=== PATIENT | male | born 1940 | race African-American/Black ===

== ENCOUNTER 2016-12-04 11:10 | Outpatient (CLI) | payer MEDICARE, OTHER | END 2016-12-04 11:11 | disposition home or self-care (01) | DX: J02.9 Acute pharyngitis, unspecified (principal) ==

== ENCOUNTER 2017-07-24 10:47 | Outpatient (CLI) | payer MEDICARE, OTHER ==
[2017-07-24 11:04] LABS: BASOPHILS % (AUTO) 0.3 %; EOSINOPHILS % (AUTO) 0.5 %; HGB - HEMOGLOBIN 13.6 g/dL (14.0-18.0); LYMPHOCYTES # (AUTO) 1.1 10^3/uL (1.5-3.5); LYMPHOCYTES % (AUTO) 19.5 %; MEAN CORPUSCULAR HGB CONC 34.5 g/dL (32.0-36.0); MEAN CORPUSCULAR VOLUME 95.6 fL (80.0-94.0); MEAN PLATELET VOLUME 6.8 fL (7.4-11.4); MONOCYTES # (AUTO) 0.5 10^3/uL (0.0-1.0); MONOCYTES % (AUTO) 9.9 %; NEUTROPHILS # (AUTO) 3.8 10^3/uL (1.5-6.6); NEUTROPHILS % (AUTO) 69.8 %; PLT - PLATELET COUNT 163 10^3/uL (130-450); RED BLOOD COUNT 4.13 10^6/uL (4.70-6.10); RED CELL DISTRIBUTION WIDTH 14.6 % (12.0-15.0); WHITE BLOOD COUNT 5.5 x10^3/uL (4.8-10.8)
[2017-07-24 11:41] LABS: ALBUMIN 4.4 g/dL (3.2-5.5); ALBUMIN/GLOBULIN RATIO 1.5 (1.0-2.2); BILIRUBIN,TOTAL 0.7 mg/dL (0.2-1.0); CALCIUM 9.1 mg/dL (8.5-10.3); TOTAL PROTEIN 7.3 g/dL (6.7-8.2); URIC ACID 4.8 mg/dL (2.6-7.2)
== END 2017-07-24 10:48 | disposition home or self-care (01) ==
LOC: LAB 10:47
PROVIDERS: ATTEND Internal Medicine
DX: C61 Malignant neoplasm of prostate (principal); I10 Essential (primary) hypertension; M10.9 Gout, unspecified
CPT/HCPCS: 36415; 80053; 84153; 84443; 84550; 85025

== ENCOUNTER 2018-08-19 07:18 | Outpatient (CLI) | payer MEDICARE, OTHER ==
[2018-08-19 12:11] LABS: BASOPHILS % (AUTO) 0.4 %; EOSINOPHILS # (AUTO) 0.1 10^3/uL (0.0-0.7); EOSINOPHILS % (AUTO) 1.6 %; HGB - HEMOGLOBIN 13.7 g/dL (14.0-18.0); LYMPHOCYTES # (AUTO) 1.3 10^3/uL (1.5-3.5); LYMPHOCYTES % (AUTO) 39.2 %; MEAN CORPUSCULAR HEMOGLOBIN 33.3 pg (27.0-31.0); MEAN CORPUSCULAR HGB CONC 34.2 g/dL (32.0-36.0); MEAN CORPUSCULAR VOLUME 97.3 fL (80.0-94.0); MEAN PLATELET VOLUME 8.1 fL (7.4-11.4); MONOCYTES # (AUTO) 0.4 10^3/uL (0.0-1.0); NEUTROPHILS # (AUTO) 1.6 10^3/uL (1.5-6.6); NEUTROPHILS % (AUTO) 47.8 %; PLT - PLATELET COUNT 186 10^3/uL (130-450); RED BLOOD COUNT 4.12 10^6/uL (4.70-6.10); RED CELL DISTRIBUTION WIDTH 14.6 % (12.0-15.0); WHITE BLOOD COUNT 3.3 x10^3/uL (4.8-10.8)
[2018-08-19 12:26] LABS: ALBUMIN/GLOBULIN RATIO 1.4 (1.0-2.2); BILIRUBIN,TOTAL 0.5 mg/dL (0.2-1.0); CREATININE 1.1 mg/dL (0.6-1.2); TOTAL PROTEIN 6.8 g/dL (6.7-8.2); URIC ACID 4.8 mg/dL (2.6-7.2)
== END 2018-08-19 07:19 | disposition home or self-care (01) ==
LOC: LAB.F 07:18
PROVIDERS: ATTEND Internal Medicine
DX: C61 Malignant neoplasm of prostate (principal); I10 Essential (primary) hypertension; M10.9 Gout, unspecified; Z12.5 Encounter for screening for malignant neoplasm of prostate; Z79.899 Other long term (current) drug therapy
CPT/HCPCS: 36415; 80053; 84550; 85025; G0103; 84153

== ENCOUNTER 2019-07-08 18:51 | Outpatient (CLI) | payer MEDICARE, OTHER ==
[2019-07-08 19:16] LABS: BASOPHILS % (AUTO) 0.2 %; EOSINOPHILS % (AUTO) 0.6 %; HGB - HEMOGLOBIN 13.7 g/dL (14.0-18.0); LYMPHOCYTES % (AUTO) 39.9 %; MEAN CORPUSCULAR HEMOGLOBIN 31.3 pg (27.0-31.0); MEAN CORPUSCULAR HGB CONC 32.4 g/dL (32.0-36.0); MEAN CORPUSCULAR VOLUME 96.6 fL (80.0-94.0); MEAN PLATELET VOLUME 8.9 fL (7.4-11.4); MONOCYTES # (AUTO) 0.4 10^3/uL (0.0-1.0); MONOCYTES % (AUTO) 8.1 %; NEUTROPHILS # (AUTO) 2.6 10^3/uL (1.5-6.6); PLT - PLATELET COUNT 208 10^3/uL (130-450); RED BLOOD COUNT 4.38 10^6/uL (4.70-6.10); RED CELL DISTRIBUTION WIDTH 15.3 % (12.0-15.0); WHITE BLOOD COUNT 5.1 x10^3/uL (4.8-10.8)
[2019-07-08 19:49] LABS: ALBUMIN 4.6 g/dL (3.2-5.5); ALBUMIN/GLOBULIN RATIO 1.2 (1.0-2.2); BILIRUBIN,TOTAL 0.7 mg/dL (0.2-1.0); CALCIUM 9.5 mg/dL (8.5-10.3); CREATININE 0.9 mg/dL (0.6-1.2); TOTAL PROTEIN 8.4 g/dL (6.7-8.2); URIC ACID 4.9 mg/dL (2.6-7.2)
== END 2019-07-08 18:52 | disposition home or self-care (01) ==
LOC: LAB 18:51
PROVIDERS: ATTEND Family Medicine
DX: C61 Malignant neoplasm of prostate (principal); R42 Dizziness and giddiness; R31.9 Hematuria, unspecified; I10 Essential (primary) hypertension; M10.9 Gout, unspecified
CPT/HCPCS: 36415; 80053; 84153; 84443; 84550; 85025

== ENCOUNTER 2019-07-08 19:11 | Outpatient (CLI) | payer MEDICARE, OTHER ==
--- NOTE | 2019-07-10 08:06 | Ultrasound Report ---
Reason: HEMATURIA,ABDOMINAL PAIN Procedure Date: 07/08/2019 Accession Number: [id number] / [id number] Procedure: US - Retroperitoneal CPT Code: Final Report FULL RESULT: EXAM: RENAL ULTRASOUND EXAM DATE: 07/08/2019 07:59 PM. CLINICAL HISTORY: Abdominal pain. Microscopic hematuria. COMPARISON: ABDOMEN/PELVIS W/ 12/18/2014 3:05 PM. TECHNIQUE: Real-time scanning was performed with static images obtained. FINDINGS: Right Kidney: 10.6 x 6.9 x 5.3 cm. There is no hydronephrosis or hydroureter. There is a 0.7 cm diameter simple cyst in the right renal cortex. Left Kidney: 10.7 x 5.2 x 5.4 cm. There is no hydronephrosis or hydroureter. There is a 2.5 cm diameter simple cyst in the left renal cortex. Bladder: Bilateral jets seen. The prevoid bladder volume was 79 cc. The postvoid bladder volume was 4.4 cc. Other: None. IMPRESSION: No acute pathology identified. Incidental renal cysts. RADIA The call report notification system was initiated by Dr. Joesph Celestin at 08:16 PM on 07/08/2019.
== END 2019-07-08 19:12 | disposition home or self-care (01) ==
LOC: DI 19:11
PROVIDERS: ATTEND Family Medicine
DX: R31.9 Hematuria, unspecified (principal); R10.9 Unspecified abdominal pain; C61 Malignant neoplasm of prostate; R42 Dizziness and giddiness; I10 Essential (primary) hypertension; M10.9 Gout, unspecified
CPT/HCPCS: 36415; 76770; 80053; 84153; 84443; 84550; 85025

== ENCOUNTER 2019-08-13 07:51 | Outpatient (CLI) | payer MEDICARE, OTHER ==
[2019-08-13] MEDS ORDERED: IOVERSOL 320 100 ML VIAL IVP ONE (07:59)
[2019-08-13] MEDS ORDERED: IOVERSOL 320 50 ML VIAL ONE (07:59)
[2019-08-13 08:37] LABS: CALCIUM 8.9 mg/dL (8.5-10.3)
[2019-08-13] MEDS ORDERED: IOVERSOL 320 50 ML VIAL PO ONE (11:41)
--- NOTE | 2019-08-13 17:02 | CT Report ---
Reason: ABD PAIN Procedure Date: 08/13/2019 Accession Number: [id number] / [id number] Procedure: CT - Abdomen/Pelvis W CPT Code: Final Report FULL RESULT: EXAM: CT ABDOMEN AND PELVIS WITH CONTRAST. EXAM DATE: 08/13/2019 09:27 AM. CLINICAL HISTORY: Abdominal pain. COMPARISONS: CT abdomen/pelvis 12/18/2014. TECHNIQUE: Routine helical CT imaging was performed through the abdomen and pelvis. IV contrast: OPTI-320 100 mL. Enteric contrast: No. Reconstructions: Coronal and sagittal. In accordance with CT protocol optimization, one or more of the following dose reduction techniques were utilized for this exam: automated exposure control, adjustment of mA and/or KV based on patient size, or use of iterative reconstructive technique. FINDINGS: Lung Bases: Mild left basilar atelectasis or scar formation. Liver: Few tiny hypodense lesions consistent with cysts, stable. Gallbladder/Bile Ducts: Unremarkable. Spleen: Stable. Pancreas: Stable. Mildly atrophic. Adrenal Glands: Stable. Kidneys: Stable. Left renal cortical cysts unchanged. No hydronephrosis. Peritoneal Cavity/Bowel: Moderate retained stool in the colon. Few scattered diverticula. No evidence for active diverticulitis. No dilated segments of small or large bowel. No wall thickening. The appendix is well visualized and normal. Few shotty mesenteric and retroperitoneal lymph nodes without adenopathy. No free fluid. Pelvic Organs: Stable. Numerous brachytherapy seeds affiliated with the prostate. No free fluid or adenopathy. Vasculature: Advanced calcifications affiliated with the aorta. No aneurysmal dilation. Bones: Mild degenerative changes, no destructive bony lesions. Other: Fat-containing left inguinal hernia, stable. IMPRESSION: 1. Diverticulosis without evidence for active diverticulitis. 2. Normal appendix. RADIA
== END 2019-08-13 07:52 | disposition home or self-care (01) ==
LOC: DI 07:51
PROVIDERS: ATTEND Family Medicine
DX: R10.9 Unspecified abdominal pain (principal); K57.30 Diverticulosis of large intestine without perforation or abscess without bleeding
CPT/HCPCS: 36415; 74177; 80048; Q9967

== ENCOUNTER 2020-07-20 11:11 | Outpatient (CLI) | payer MEDICARE, OTHER ==
[2020-07-20 15:07] LABS: BASOPHILS % (AUTO) 0.3 %; EOSINOPHILS # (AUTO) 0.1 10^3/uL (0.0-0.7); EOSINOPHILS % (AUTO) 1.3 %; HCT - HEMATOCRIT 40.9 % (42.0-52.0); HGB - HEMOGLOBIN 13.3 g/dL (14.0-18.0); LYMPHOCYTES # (AUTO) 1.6 10^3/uL (1.5-3.5); LYMPHOCYTES % (AUTO) 39.6 %; MEAN CORPUSCULAR HEMOGLOBIN 31.7 pg (27.0-31.0); MEAN CORPUSCULAR HGB CONC 32.5 g/dL (32.0-36.0); MEAN CORPUSCULAR VOLUME 97.6 fL (80.0-94.0); MEAN PLATELET VOLUME 10.1 fL (7.4-11.4); MONOCYTES # (AUTO) 0.6 10^3/uL (0.0-1.0); MONOCYTES % (AUTO) 14.5 %; NEUTROPHILS # (AUTO) 1.8 10^3/uL (1.5-6.6); NEUTROPHILS % (AUTO) 44.3 %; PLT - PLATELET COUNT 191 10^3/uL (130-450); RED BLOOD COUNT 4.19 10^6/uL (4.70-6.10); RED CELL DISTRIBUTION WIDTH 14.6 % (12.0-15.0); WHITE BLOOD COUNT 3.9 x10^3/uL (4.8-10.8)
[2020-07-20 15:27] LABS: ALBUMIN/GLOBULIN RATIO 1.3 (1.0-2.2); ALKALINE PHOSPHATASE 51 IU/L (42-121); ALT ALANINE AMINOTRANSFERASE 17 IU/L (10-60); AST ASPARTATE AMINOTRANSFERASE 21 IU/L (10-42); BILIRUBIN,TOTAL 0.6 mg/dL (0.2-1.0); BUN - BLOOD UREA NITROGEN 17 mg/dL (6-20); CALCIUM 9.2 mg/dL (8.5-10.3); CARBON DIOXIDE - CO2 28 mmol/L (21-32); CHLORIDE 105 mmol/L (101-111); CHOL/HDL RATIO 3.9 (<5.0); CHOLESTEROL 143 mg/dL; GFR - MDRD 88 (>89); GLUCOSE 103 mg/dL (70-100); HDL CHOLESTEROL 37 mg/dL; LDL CHOLESTEROL,CALCULATED 89 mg/dL; LDL/HDL RATIO 2.4 (<3.6); POTASSIUM 3.9 mmol/L (3.5-5.0); SODIUM 140 mmol/L (135-145); TOTAL PROTEIN 7.2 g/dL (6.7-8.2); TRIGLYCERIDES 86 mg/dL; VLDL CHOLESTEROL 17 mg/dL
[2020-07-20 15:33] LABS: THYROID STIMULATING HORMONE 1.44 uIU/mL (0.34-5.60)
== END 2020-07-20 11:12 | disposition home or self-care (01) ==
LOC: LAB.S 11:11
PROVIDERS: ATTEND Family Medicine
DX: H81.10 Benign paroxysmal vertigo, unspecified ear (principal); I10 Essential (primary) hypertension; M10.9 Gout, unspecified
CPT/HCPCS: 36415; 80053; 80061; 83721; 84443; 85025

== ENCOUNTER 2021-01-10 08:00 | Outpatient (CLI) | payer MEDICARE, OTHER ==
[2021-01-10 18:04] LABS: BASOPHILS % (AUTO) 0.2 %; EOSINOPHILS % (AUTO) 0.9 %; HCT - HEMATOCRIT 42.6 % (42.0-52.0); HGB - HEMOGLOBIN 13.6 g/dL (14.0-18.0); LYMPHOCYTES # (AUTO) 1.5 10^3/uL (1.5-3.5); LYMPHOCYTES % (AUTO) 34.9 %; MEAN CORPUSCULAR HEMOGLOBIN 31.4 pg (27.0-31.0); MEAN CORPUSCULAR HGB CONC 31.9 g/dL (32.0-36.0); MEAN CORPUSCULAR VOLUME 98.4 fL (80.0-94.0); MONOCYTES # (AUTO) 0.5 10^3/uL (0.0-1.0); MONOCYTES % (AUTO) 12.5 %; NEUTROPHILS # (AUTO) 2.2 10^3/uL (1.5-6.6); NEUTROPHILS % (AUTO) 51.3 %; PLT - PLATELET COUNT 210 10^3/uL (130-450); RED BLOOD COUNT 4.33 10^6/uL (4.70-6.10); RED CELL DISTRIBUTION WIDTH 15.2 % (12.0-15.0); WHITE BLOOD COUNT 4.2 x10^3/uL (4.8-10.8)
[2021-01-10 18:21] LABS: ALBUMIN 4.4 g/dL (3.2-5.5); ALBUMIN/GLOBULIN RATIO 1.2 (1.0-2.2); BILIRUBIN,TOTAL 0.8 mg/dL (0.2-1.0); CALCIUM 9.2 mg/dL (8.5-10.3); CREATININE 1.2 mg/dL (0.6-1.2); POTASSIUM 4.1 mmol/L (3.5-5.0)
[2021-01-10 18:38] LABS: THYROID STIMULATING HORMONE 1.41 uIU/mL (0.34-5.60)
[2021-01-10 18:39] LABS: FREE T3 3.48 pg/mL (2.5-3.9)
[2021-01-10 18:40] LABS: FREE T4 (FREE THYROXINE) 1.16 ng/dL (0.58-1.64)
[2021-01-10 20:42] LABS: ESTIMATED AVERAGE GLUCOSE 126 mg/dL (70-100)
== END 2021-01-10 23:59 | disposition home or self-care (01) ==
LOC: LAB.WCP 08:00
PROVIDERS: ATTEND Family Medicine
DX: I10 Essential (primary) hypertension (principal); R68.81 Early satiety; R73.9 Hyperglycemia, unspecified; R63.4 Abnormal weight loss; K59.00 Constipation, unspecified
CPT/HCPCS: 36415; 80053; 83036; 84439; 84443; 84481; 85025

== ENCOUNTER 2021-04-12 11:17 | Day surgery (SDC) | payer MEDICARE, OTHER ==
[2021-04-12] MEDS ORDERED: LACTATED RINGERS 1,000 ML IV ONE ×2 (11:21→13:30)
--- NOTE | 2021-04-12 12:17 | ANESTHESIA ---
Pre-Anesthesia VS, & Labs - Diagnosis early satiety, unexplained weight loss - Procedure EGD, Colonoscopy Vital Signs: Temp Pulse Resp BP Pulse Ox 36.4 C L 75 12 173/102 H 100 04/12/21 11:21 04/12/21 11:21 04/12/21 11:21 04/12/21 11:21 04/12/21 11:21 Height: 6 ft 3 in Weight (kg): 96.2 kg Body Mass Index: 26.5 BMI Classification: Overweight - NPO >8 hours - Lab Results Lab results reviewed: Yes Home Medications and Allergies Home Medications: Ambulatory Orders Benazepril HCl [Lotensin] 1 tab PO DAILY 04/11/21 Dorzolamide HCl/Pf [Dorzolamide 2% Eye Drop] 1 drops EACHEYE DAILY 04/11/21 Latanoprost/Pf [Latanoprost 0.005% Eye Drop] 1 drops EACHEYE DAILY 04/11/21 Metoprolol Succinate [Toprol Xl] 1 tab PO DAILY 04/11/21 Amlodipine Besylate/Benazepril [Lotrel 10-40 mg Capsule] 5 mg ORAL DAILY 04/24/14 Cholecalciferol (Vitamin D3) [D3-2000] 1 mg ORAL DAILY 04/24/14 Hydrochlorothiazide 12.5 mg ORAL DAILY 04/24/14 allopurinoL [Zyloprim] 1 mg ORAL DAILY 04/24/14 Benazepril HCl [Lotensin] 1 tab PO DAILY 04/11/21 Dorzolamide HCl/Pf [Dorzolamide 2% Eye Drop] 1 drops EACHEYE DAILY 04/11/21 Latanoprost/Pf [Latanoprost 0.005% Eye Drop] 1 drops EACHEYE DAILY 04/11/21 Metoprolol Succinate [Toprol Xl] 1 tab PO DAILY 04/11/21 Allergies/Adverse Reactions: Allergies Allergy/AdvReac Type Severity Reaction Status Date / Time No Known Drug Allergies Allergy Verified 04/11/21 14:10 Anes History & Medical History - Anesthetic History Anesthesia Complications: reports: No previous complications Family history of Anesthesia Complications: Denies Family history of Malignant Hyperthermia: Denies - Medical History Cardiovascular: reports: Hypertension, Other Pulmonary: reports: None Gastrointestinal: reports: None Urinary: reports: Other Musculoskeletal: reports: Osteoarthritis, Gout Endocrine/Autoimmune: reports: None Skin: reports: None - Surgical History General: reports: Colonoscopy Urologic: reports: Prostatic surgery Exam General: Alert, Oriented x3, Cooperative, No acute distress Dental: WNL Mouth Openin Fingerbreadth Neck Mobility: Reduced Mallampati classification: I Respiratory: Lungs clear, Normal breath sounds, No respiratory distress, No accessory muscle use Cardiovascular: Regular rate, Normal S1, Normal S2, No murmurs Plan Anesthesia Type: General, Total IV Consent for Procedure(s) Verified and Reviewed: Yes Code Status: Attempt Resuscitation ASA classification: 2-Mild systemic disease Is this case an emergency?: No
[2021-04-12] MEDS ORDERED: MIDAZOLAM 2 MG/2 ML VIAL ONE (12:57)
[2021-04-12] MEDS ORDERED: fentaNYL 100 MCG/2 ML VIAL ONE (12:57)
[2021-04-12] MEDS ORDERED: PROPOFOL 500 MG/50 ML 500 MG/50 ML VIAL ONE (12:57)
[2021-04-12] MEDS ORDERED: ePHEDrine 50 MG/ML VIAL IVP ONE (13:53)
[2021-04-12 14:20] VITALS: BP 165/94
--- NOTE | 2021-04-12 15:02 | ANESTHESIA POST OP EVALUATION ---
Anesthesia Post Eval - Post Anesthesia Eval Vitals: Last Vital Signs Temp 36.2 C L 04/12/21 14:17 Pulse 73 04/12/21 14:17 Resp 12 04/12/21 14:17 BP 165/94 H 04/12/21 14:17 Pulse Ox 97 04/12/21 14:17 CV Function Including HR & BP: Stable Pain Control: Satisfactory Nausea & Vomiting: Negative Mental Status: Baseline Respiratory Status: Airway Patent Hydration Status: Satisfactory Anesthesia Complications: None
== END 2021-04-12 11:18 | disposition home or self-care (01) ==
LOC: SDS 11:17
PROVIDERS: ATTEND Surgery
PROC: 0DB58ZX Excision of Esophagus, Via Natural or Artificial Opening Endoscopic, Diagnostic (ICD-10-PCS; 2021-04-12)
PROC: 0DBN8ZZ Excision of Sigmoid Colon, Via Natural or Artificial Opening Endoscopic (ICD-10-PCS; 2021-04-12)
PROC: 0DB98ZX Excision of Duodenum, Via Natural or Artificial Opening Endoscopic, Diagnostic (ICD-10-PCS; principal; 2021-04-12 12:30)
PROC: 0DB68ZX Excision of Stomach, Via Natural or Artificial Opening Endoscopic, Diagnostic (ICD-10-PCS; 2021-04-12 12:30)
DX: R68.81 Early satiety (principal); R63.4 Abnormal weight loss; Z68.26 Body mass index [BMI] 26.0-26.9, adult; K22.2 Esophageal obstruction; K64.4 Residual hemorrhoidal skin tags; K64.8 Other hemorrhoids; K57.30 Diverticulosis of large intestine without perforation or abscess without bleeding; R55 Syncope and collapse; R07.89 Other chest pain; I49.9 Cardiac arrhythmia, unspecified
CPT/HCPCS: 43239; 45380; J7120

== ENCOUNTER 2021-04-19 11:30 | Outpatient (CLI) | payer MEDICARE, OTHER | END 2021-04-19 11:31 | disposition home or self-care (01) | LOC: LAB.S 11:30 | PROVIDERS: ATTEND Family Medicine | DX: R63.4 Abnormal weight loss (principal); R55 Syncope and collapse; C61 Malignant neoplasm of prostate; I10 Essential (primary) hypertension; M10.9 Gout, unspecified; D64.9 Anemia, unspecified; Z53.9 Procedure and treatment not carried out, unspecified reason ==

== ENCOUNTER 2021-07-05 10:09 | Outpatient (CLI) | payer MEDICARE, OTHER ==
[2021-07-05 14:21] LABS: BASOPHILS % (AUTO) 0.2 %; EOSINOPHILS % (AUTO) 0.9 %; HCT - HEMATOCRIT 39.2 % (42.0-52.0); HGB - HEMOGLOBIN 13.1 g/dL (14.0-18.0); LYMPHOCYTES # (AUTO) 1.3 10^3/uL (1.5-3.5); LYMPHOCYTES % (AUTO) 29.6 %; MEAN CORPUSCULAR HEMOGLOBIN 31.9 pg (27.0-31.0); MEAN CORPUSCULAR HGB CONC 33.4 g/dL (32.0-36.0); MEAN CORPUSCULAR VOLUME 95.4 fL (80.0-94.0); MEAN PLATELET VOLUME 9.9 fL (7.4-11.4); MONOCYTES # (AUTO) 0.4 10^3/uL (0.0-1.0); MONOCYTES % (AUTO) 8.6 %; NEUTROPHILS # (AUTO) 2.7 10^3/uL (1.5-6.6); NEUTROPHILS % (AUTO) 60.5 %; PLT - PLATELET COUNT 209 10^3/uL (130-450); RED BLOOD COUNT 4.11 10^6/uL (4.70-6.10); RED CELL DISTRIBUTION WIDTH 14.9 % (12.0-15.0); WHITE BLOOD COUNT 4.4 x10^3/uL (4.8-10.8)
[2021-07-05 14:44] LABS: ALBUMIN/GLOBULIN RATIO 1.1 (1.0-2.2); ALKALINE PHOSPHATASE 43 IU/L (42-121); ALT ALANINE AMINOTRANSFERASE 11 IU/L (10-60); AST ASPARTATE AMINOTRANSFERASE 16 IU/L (10-42); BILIRUBIN,TOTAL 0.7 mg/dL (0.2-1.0); BUN - BLOOD UREA NITROGEN 17 mg/dL (6-20); CALCIUM 9.7 mg/dL (8.5-10.3); CARBON DIOXIDE - CO2 28 mmol/L (21-32); CHLORIDE 105 mmol/L (101-111); CHOL/HDL RATIO 3.8 (<5.0); CHOLESTEROL 145 mg/dL; GFR - MDRD 87 (>89); GLUCOSE 110 mg/dL (70-100); HDL CHOLESTEROL 38 mg/dL; LDL CHOLESTEROL,CALCULATED 88 mg/dL; LDL/HDL RATIO 2.3 (<3.6); SODIUM 142 mmol/L (135-145); TOTAL PROTEIN 7.6 g/dL (6.7-8.2); TRIGLYCERIDES 95 mg/dL; URIC ACID 4.7 mg/dL (2.6-7.2); VLDL CHOLESTEROL 19 mg/dL
[2021-07-05 14:51] LABS: THYROID STIMULATING HORMONE 1.86 uIU/mL (0.34-5.60)
[2021-07-05 20:41] LABS: ESTIMATED AVERAGE GLUCOSE 128 mg/dL (70-100); HEMOGLOBIN A1c% 6.1 % (4.27-6.07)
== END 2021-07-05 10:10 | disposition home or self-care (01) ==
LOC: LAB.S 10:09
PROVIDERS: ATTEND Family Medicine
DX: R63.4 Abnormal weight loss (principal); R55 Syncope and collapse; R73.9 Hyperglycemia, unspecified; C61 Malignant neoplasm of prostate; I10 Essential (primary) hypertension; M10.9 Gout, unspecified
CPT/HCPCS: 36415; 80053; 80061; 83036; 83721; 84153; 84443; 84550; 85025

== ENCOUNTER 2021-07-13 13:16 | Outpatient (CLI) | payer MEDICARE, OTHER ==
--- NOTE | 2021-07-13 15:24 | XRAY Report ---
PROCEDURE: Lumbar Spine 2 View INDICATIONS: BACK PAIN WITH RADICULOPATHY TECHNIQUE: 2 views of the lumbar spine were acquired. COMPARISON: None. FINDINGS: Bones: 5 [id number] vertebrae are present. There is loss of normal lumbar lordosis and otherwi se normal bony alignment. No vertebral body compression fractures. No suspicious bony lesions. Mul tilevel disc space narrowing and endplate osteophyte formation. Facet hypertrophy throughout the mid and lower lumbar spine. Soft tissues: Overlying bowel gas pattern is normal. No suspicious soft tissue calcifications. IMPRESSION: 1. Multilevel degenerative disc and facet disease. No acute fracture. No osseous lesion. If symptoms and/or clinical suspicion for pathology continue, further assessment with repeat plain films, or adva nced imaging (e.g., CT, MRI, or bone scan) is recommended for further assessment. Next line 2. Given the history of radiculopathy, further assessment with lumbar spine MRI is recommended. Reviewed by: Jaleesa Collado MD on 07/13/2021 3:22 PM PST Approved by: Jaleesa Collado MD on 07/13/2021 3:22 PM PST Station ID: [id number]
== END 2021-07-13 13:17 | disposition home or self-care (01) ==
LOC: DI 13:16
PROVIDERS: ATTEND Family Medicine
DX: M47.26 Other spondylosis with radiculopathy, lumbar region (principal); M51.16 Intervertebral disc disorders with radiculopathy, lumbar region

== ENCOUNTER 2022-01-03 07:33 | Outpatient (CLI) | payer MEDICARE, OTHER ==
[2022-01-03 14:10] LABS: BASOPHILS % (AUTO) 0.3 %; EOSINOPHILS % (AUTO) 0.9 %; HCT - HEMATOCRIT 39.2 % (42.0-52.0); HGB - HEMOGLOBIN 12.6 g/dL (14.0-18.0); LYMPHOCYTES # (AUTO) 1.2 10^3/uL (1.5-3.5); LYMPHOCYTES % (AUTO) 35.8 %; MEAN CORPUSCULAR HEMOGLOBIN 31.2 pg (27.0-31.0); MEAN CORPUSCULAR HGB CONC 32.1 g/dL (32.0-36.0); MEAN PLATELET VOLUME 10.1 fL (7.4-11.4); MONOCYTES # (AUTO) 0.4 10^3/uL (0.0-1.0); MONOCYTES % (AUTO) 11.4 %; NEUTROPHILS # (AUTO) 1.8 10^3/uL (1.5-6.6); NEUTROPHILS % (AUTO) 51.6 %; PLT - PLATELET COUNT 209 10^3/uL (130-450); RED BLOOD COUNT 4.04 10^6/uL (4.70-6.10); RED CELL DISTRIBUTION WIDTH 15.5 % (12.0-15.0); WHITE BLOOD COUNT 3.4 x10^3/uL (4.8-10.8)
[2022-01-03 14:31] LABS: ALBUMIN 3.9 g/dL (3.2-5.5); ALBUMIN/GLOBULIN RATIO 1.1 (1.0-2.2); ALKALINE PHOSPHATASE 48 IU/L (42-121); ALT ALANINE AMINOTRANSFERASE 13 IU/L (10-60); AST ASPARTATE AMINOTRANSFERASE 18 IU/L (10-42); BILIRUBIN,TOTAL 0.7 mg/dL (0.2-1.0); BUN - BLOOD UREA NITROGEN 21 mg/dL (6-20); CALCIUM 9.1 mg/dL (8.5-10.3); CARBON DIOXIDE - CO2 28 mmol/L (21-32); CHLORIDE 104 mmol/L (101-111); CHOL/HDL RATIO 3.6 (<5.0); CHOLESTEROL 145 mg/dL; CREATININE 1.2 mg/dL (0.6-1.2); GFR - MDRD 71 (>89); GLUCOSE 101 mg/dL (70-100); HDL CHOLESTEROL 40 mg/dL; LDL CHOLESTEROL,CALCULATED 93 mg/dL; LDL/HDL RATIO 2.3 (<3.6); POTASSIUM 3.9 mmol/L (3.5-5.0); SODIUM 140 mmol/L (135-145); TOTAL PROTEIN 7.4 g/dL (6.7-8.2); TRIGLYCERIDES 62 mg/dL; URIC ACID 4.8 mg/dL (2.6-7.2); VLDL CHOLESTEROL 12 mg/dL
[2022-01-03 14:36] LABS: THYROID STIMULATING HORMONE 2.16 uIU/mL (0.34-5.60)
== END 2022-01-03 07:34 | disposition home or self-care (01) ==
LOC: LAB.S 07:33
PROVIDERS: ATTEND Family Medicine
DX: I10 Essential (primary) hypertension (principal); R63.4 Abnormal weight loss; R73.9 Hyperglycemia, unspecified; H81.10 Benign paroxysmal vertigo, unspecified ear; C61 Malignant neoplasm of prostate; M10.9 Gout, unspecified
CPT/HCPCS: 36415; 80053; 80061; 83721; 84153; 84443; 84550; 85025

== ENCOUNTER 2022-03-28 09:48 | Outpatient (CLI) | payer MEDICARE, OTHER | END 2022-03-28 09:49 | disposition home or self-care (01) | LOC: LAB.S 09:48 | PROVIDERS: ATTEND Urology | DX: Z85.46 Personal history of malignant neoplasm of prostate (principal) | CPT/HCPCS: 36415; 84153 ==

== ENCOUNTER 2022-05-03 15:14 | Outpatient (CLI) | payer MEDICARE, OTHER | END 2022-05-03 15:15 | disposition home or self-care (01) | LOC: MAC.MOP 15:14 | PROVIDERS: ATTEND Family Medicine | DX: R07.2 Precordial pain (principal); R55 Syncope and collapse | CPT/HCPCS: 93246 ==

== ENCOUNTER 2022-05-30 11:00 | Outpatient (CLI) | payer MEDICARE, OTHER | END 2022-05-30 11:01 | disposition home or self-care (01) | LOC: MAC.MOP 11:00 | PROVIDERS: ATTEND Family Medicine | DX: I47.1 Supraventricular tachycardia (principal); I49.1 Atrial premature depolarization; I49.3 Ventricular premature depolarization | CPT/HCPCS: 93248 ==

== ENCOUNTER 2022-07-05 09:17 | Outpatient (CLI) | payer MEDICARE, OTHER ==
[2022-07-05 14:39] LABS: CALCIUM 9.3 mg/dL (8.5-10.3); CREATININE 1.1 mg/dL (0.6-1.2); POTASSIUM 3.7 mmol/L (3.5-5.0)
== END 2022-07-05 09:18 | disposition home or self-care (01) ==
LOC: LAB.S 09:17
PROVIDERS: ATTEND Family Medicine
DX: C61 Malignant neoplasm of prostate (principal); I10 Essential (primary) hypertension
CPT/HCPCS: 36415; 80048; 84153

== ENCOUNTER 2022-11-21 16:55 | Outpatient (CLI) | payer MEDICARE, OTHER | END 2022-11-21 16:56 | disposition critical access hospital (66) | LOC: EMS 16:55 | DX: R46.4 Slowness and poor responsiveness (principal); R46.89 Other symptoms and signs involving appearance and behavior; R41.89 Other symptoms and signs involving cognitive functions and awareness | CPT/HCPCS: A0425; A0429 ==

== ENCOUNTER 2022-11-21 17:28 | Emergency (ER) | payer MEDICARE, OTHER ==
[2022-11-21 17:52] LABS: BILIRUBIN,URINE NEGATIVE (NEGATIVE); GLUCOSE, URINE (UA) NEGATIVE (NEGATIVE); KETONES,URINE (UA) NEGATIVE (NEGATIVE); LEUKOCYTE ESTERASE, URINE NEGATIVE (NEGATIVE); NITRITE,URINE NEGATIVE (NEGATIVE); OCCULT BLOOD,URINE NEGATIVE (NEGATIVE); PROTEIN,URINE NEGATIVE (NEGATIVE); UROBILINOGEN,URINE 0.2 (NORMAL) E.U./dL (NORMAL)
[2022-11-21 17:53] LABS: CLARITY,URINE CLEAR (CLEAR)
[2022-11-21 18:04] LABS: BASOPHILS % (AUTO) 0.3 %; HCT - HEMATOCRIT 39.8 % (42.0-52.0); HGB - HEMOGLOBIN 13.1 g/dL (14.0-18.0); LYMPHOCYTES # (AUTO) 1.4 10^3/uL (1.5-3.5); LYMPHOCYTES % (AUTO) 36.4 %; MEAN CORPUSCULAR HGB CONC 32.9 g/dL (32.0-36.0); MEAN CORPUSCULAR VOLUME 94.1 fL (80.0-94.0); MEAN PLATELET VOLUME 9.2 fL (7.4-11.4); MONOCYTES # (AUTO) 0.4 10^3/uL (0.0-1.0); MONOCYTES % (AUTO) 10.6 %; NEUTROPHILS % (AUTO) 51.4 %; PLT - PLATELET COUNT 168 10^3/uL (130-450); RED BLOOD COUNT 4.23 10^6/uL (4.70-6.10); RED CELL DISTRIBUTION WIDTH 14.9 % (12.0-15.0); WHITE BLOOD COUNT 3.9 x10^3/uL (4.8-10.8)
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
[2022-11-21 18:16] LABS: ALBUMIN 3.7 g/dL (3.2-5.5); ALBUMIN/GLOBULIN RATIO 1.2 (1.0-2.2); ALKALINE PHOSPHATASE 45 IU/L (42-121); ALT ALANINE AMINOTRANSFERASE 12 IU/L (10-60); AST ASPARTATE AMINOTRANSFERASE 17 IU/L (10-42); BILIRUBIN,TOTAL 0.5 mg/dL (0.2-1.0); BUN - BLOOD UREA NITROGEN 17 mg/dL (6-20); CALCIUM 9.1 mg/dL (8.5-10.3); CARBON DIOXIDE - CO2 27 mmol/L (21-32); CHLORIDE 106 mmol/L (101-111); CREATININE 1.3 mg/dL (0.6-1.2); ETOH - ETHANOL < 5.0 mg/dL; GFR - MDRD 64 (>89); GLUCOSE 117 mg/dL (70-100); POTASSIUM 3.8 mmol/L (3.5-5.0); SODIUM 142 mmol/L (135-145); TOTAL PROTEIN 6.9 g/dL (6.7-8.2)
[2022-11-21 18:28] LABS: LIPASE 52 U/L (22-51)
--- NOTE | 2022-11-21 18:42 | CT Report ---
PROCEDURE: HEAD WO INDICATIONS: ams TECHNIQUE: Noncontrast 4.5 mm thick angled axial sections acquired from the foramen magnum to the vertex. For r adiation dose reduction, the following was used: automated exposure control, adjustment of mA and/or kV according to patient size. COMPARISON: None. FINDINGS: Image quality: Excellent. CSF spaces: Basal cisterns are patent. No extra-axial fluid collections. Ventricles are normal in size and shape. Subcortical and periventricular hypodensities are consistent with microvascular ische young disease and age-related cerebral volume loss. Brain: No midline shift. No intracranial masses or hemorrhage. Lopez-white matter interface is norm al. Skull and face: Calvarium and visualized facial bones are intact, without suspicious lesions. Sinuses: Visualized sinuses and mastoids are clear. IMPRESSION: 1. No acute intracranial abnormality. 2. Microvascular ischemic disease and age-related cerebral volume loss. Reviewed by: Andrey Velazquez on 11/21/2022 6:41 PM PDT Approved by: Andrey Velazquez on 11/21/2022 6:41 PM PDT Station ID: [id number]
[2022-11-21 19:41] VITALS: BP 140/88
== END 2022-11-21 19:37 | disposition home or self-care (01) ==
LOC: EDUNIT# → ED 17:28
DX: R41.82 Altered mental status, unspecified (principal); D72.810 Lymphocytopenia; I10 Essential (primary) hypertension
CPT/HCPCS: 36415; 70450; 80053; 81003; 83690; 85025; 93005; 99284; G0480; 80320; 81001; 87086

== ENCOUNTER 2023-01-26 10:50 | Outpatient (CLI) | payer MEDICARE, OTHER ==
--- NOTE | 2023-01-26 11:13 | XRAY Report ---
PROCEDURE: Wrist 4 View LT INDICATIONS: LEFT WRIST PAIN TECHNIQUE: 4 views of the wrist were acquired. COMPARISON: None. FINDINGS: Bones: No fractures or dislocations. No suspicious bony lesions. Soft tissues: No suspicious soft tissue calcifications or masses. IMPRESSION: No visualized acute fracture or dislocation. However, occult injury cannot be excluded. Recommend armani rt interval imaging follow-up in 7-10 days as clinically indicated for additional evaluation. Reviewed by: Tracie Cameron MD on 01/26/2023 11:12 AM PDT Approved by: Tracie Cameron MD on 01/26/2023 11:12 AM PDT Station ID: [id number]
== END 2023-01-26 23:59 | disposition home or self-care (01) ==
LOC: DI.S 10:50
PROVIDERS: ATTEND Physician Assistant Medical
DX: S63.592A Other specified sprain of left wrist, initial encounter (principal); S63.602A Unspecified sprain of left thumb, initial encounter

== ENCOUNTER 2023-06-29 10:19 | Outpatient (CLI) | payer MEDICARE, OTHER ==
[2023-06-29 14:55] LABS: BASOPHILS % (AUTO) 0.6 %; EOSINOPHILS # (AUTO) 0.1 10^3/uL (0.0-0.7); EOSINOPHILS % (AUTO) 1.7 %; HCT - HEMATOCRIT 40.2 % (42.0-52.0); LYMPHOCYTES # (AUTO) 1.2 10^3/uL (1.5-3.5); LYMPHOCYTES % (AUTO) 32.8 %; MEAN CORPUSCULAR HEMOGLOBIN 31.1 pg (27.0-31.0); MEAN CORPUSCULAR HGB CONC 32.3 g/dL (32.0-36.0); MEAN CORPUSCULAR VOLUME 96.2 fL (80.0-94.0); MEAN PLATELET VOLUME 10.1 fL (7.4-11.4); MONOCYTES # (AUTO) 0.5 10^3/uL (0.0-1.0); MONOCYTES % (AUTO) 13.8 %; NEUTROPHILS # (AUTO) 1.9 10^3/uL (1.5-6.6); NEUTROPHILS % (AUTO) 50.8 %; PLT - PLATELET COUNT 201 10^3/uL (130-450); RED BLOOD COUNT 4.18 10^6/uL (4.70-6.10); WHITE BLOOD COUNT 3.6 x10^3/uL (4.8-10.8)
[2023-06-29 14:57] LABS: ALBUMIN/GLOBULIN RATIO 1.4 (1.0-2.2); BILIRUBIN,TOTAL 0.6 mg/dL (0.2-1.0); CALCIUM 9.4 mg/dL (8.5-10.3); CREATININE 1.1 mg/dL (0.6-1.3); POTASSIUM 3.8 mmol/L (3.5-4.5); TOTAL PROTEIN 6.9 g/dL (6.4-8.9)
[2023-06-29 15:14] LABS: THYROID STIMULATING HORMONE 1.64 uIU/mL (0.34-5.60)
[2023-06-29 21:11] LABS: ESTIMATED AVERAGE GLUCOSE 120 mg/dL (70-100); HEMOGLOBIN A1c% 5.8 % (4.27-6.07)
== END 2023-06-29 10:20 | disposition home or self-care (01) ==
LOC: LAB.S 10:19
PROVIDERS: ATTEND Family Medicine
DX: I10 Essential (primary) hypertension (principal); M48.061 Spinal stenosis, lumbar region without neurogenic claudication; R53.81 Other malaise; R73.9 Hyperglycemia, unspecified
CPT/HCPCS: 36415; 80053; 83036; 84443; 85025

== ENCOUNTER 2023-11-21 14:54 | Outpatient (CLI) | payer MEDICARE, OTHER ==
--- NOTE | 2023-11-22 06:15 | XRAY Report ---
PROCEDURE: Lumbar Spine 4V INDICATIONS: LUMBAR PAIN TECHNIQUE: 4 view(s) of the lumbar spine were acquired. COMPARISON: 07/13/2021 FINDINGS: Bones: L1 wedge-shaped compression fracture with less than 5% anterior height loss and no retropulse d fracture fragment. Remainder the vertebral bodies show appropriate height and alignment. There is d isc space narrowing and hypertrophic facet joints noted particularly lower lumbar spine. Soft tissues: Atherosclerotic calcification of the abdominal aorta without evidence of aneurysm. IMPRESSION: Wedge-shaped L1 compression fracture, new from 07/13/2021. Consider follow-up MRI lumbar spine Reviewed by: Luke Zavala MD on 11/22/2023 5:14 AM CHANTEL Approved by: Luke Zavala MD on 11/22/2023 5:14 AM CHANTEL Station ID: [id number]
== END 2023-11-21 14:55 | disposition home or self-care (01) ==
LOC: DI 14:54
PROVIDERS: ATTEND Family Medicine
DX: S32.010A Wedge compression fracture of first lumbar vertebra, initial encounter for closed fracture (principal); M47.816 Spondylosis without myelopathy or radiculopathy, lumbar region

== ENCOUNTER 2023-12-09 20:42 | Outpatient (CLI) | payer MEDICARE, OTHER | END 2023-12-09 23:59 | disposition critical access hospital (66) | LOC: EMS 20:42 | DX: R41.82 Altered mental status, unspecified (principal); M54.6 Pain in thoracic spine; R06.89 Other abnormalities of breathing; M25.512 Pain in left shoulder; W19.XXXA Unspecified fall, initial encounter; Y92.009 Unspecified place in unspecified non-institutional (private) residence as the place of occurrence of the external cause | CPT/HCPCS: A0425; A0427 ==

== ENCOUNTER 2023-12-09 21:07 | Inpatient (IN) | payer MEDICARE, OTHER ==
--- NOTE | 2023-12-09 22:20 | CT Report ---
PROCEDURE: Head WO INDICATIONS: head inj/fall/aloc TECHNIQUE: Noncontrast 4.5 mm thick angled axial sections acquired from the foramen magnum to the vertex. For r adiation dose reduction, the following was used: automated exposure control, adjustment of mA and/or kV according to patient size. COMPARISON: Prior head CT 11/21/2022. FINDINGS: Image quality: Excellent. CSF spaces: Basal cisterns are patent. No extra-axial fluid collections. Ventricles are normal in size and shape. Brain: No midline shift. No intracranial masses or hemorrhage. Lopez-white matter interface is norm al. Skull and face: Calvarium and visualized facial bones are intact, without suspicious lesions. Sinuses: Visualized sinuses and mastoids are clear. IMPRESSION: No acute intracranial pathology. Reviewed by: Darshan Simon MD on 12/09/2023 10:19 PM PDT Approved by: Darshan Simon MD on 12/09/2023 10:19 PM PDT Station ID: [id number]
--- NOTE | 2023-12-09 22:22 | CT Report ---
PROCEDURE: Cervical Spine WO INDICATIONS: fall/aloc/head inj TECHNIQUE: Noncontrast 3 mm thick sections acquired from the skull base to the T4 level. Sagittal and coronal r eformats were then constructed. For radiation dose reduction, the following was used: automated exp osure control, adjustment of mA and/or kV according to patient size. COMPARISON: None. FINDINGS: Image quality: Excellent. Bones: No fractures or dislocations. Visualized superior ribs are intact. Soft tissues: Prevertebral soft tissues are normal in thickness. No paravertebral hematomas. No ap ical pneumothoraces. IMPRESSION: No acute trauma found. 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 Reviewed by: Darshan Simon MD on 12/09/2023 10:21 PM PDT Approved by: Darshan Simon MD on 12/09/2023 10:21 PM PDT Station ID: [id number]
[2023-12-09] MEDS: SODIUM CHLORIDE 0.9% 1,000 ML IV STA (22:34)
[2023-12-09 22:53] LABS: BASOPHILS % (AUTO) 0.2 %; HCT - HEMATOCRIT 40.9 % (42.0-52.0); HGB - HEMOGLOBIN 13.7 g/dL (14.0-18.0); LYMPHOCYTES # (AUTO) 0.8 10^3/uL (1.5-3.5); LYMPHOCYTES % (AUTO) 14.6 %; MEAN CORPUSCULAR HEMOGLOBIN 31.1 pg (27.0-31.0); MEAN CORPUSCULAR HGB CONC 33.5 g/dL (32.0-36.0); MEAN CORPUSCULAR VOLUME 92.7 fL (80.0-94.0); MEAN PLATELET VOLUME 9.4 fL (7.4-11.4); MONOCYTES # (AUTO) 0.8 10^3/uL (0.0-1.0); MONOCYTES % (AUTO) 14.8 %; NEUTROPHILS # (AUTO) 3.8 10^3/uL (1.5-6.6); NEUTROPHILS % (AUTO) 70.2 %; PLT - PLATELET COUNT 163 10^3/uL (130-450); RED BLOOD COUNT 4.41 10^6/uL (4.70-6.10); WHITE BLOOD COUNT 5.4 x10^3/uL (4.8-10.8)
--- NOTE | 2023-12-09 22:58 | XRAY Report ---
PROCEDURE: Chest 1V INDICATIONS: cough TECHNIQUE: One view of the chest was acquired. COMPARISON: Two-view chest 10/08/2014. Also CT abdomen/pelvis 08/13/2019.. FINDINGS: Surgical changes and devices: None. Lungs and pleura: No pleural effusions or pneumothorax. Lungs are free of definite pneumonia bilate rally. There is a chronic elevation of the left hemidiaphragm previously also seen by CT scanning in early 2019. Etiology is uncertain but the degree of elevation does not appear to have worsened.. Mediastinum: Mediastinal contours appear normal. Heart size is normal. Bones and chest wall: No suspicious bony lesions. Overlying soft tissues appear unremarkable. IMPRESSION: No acute cardiopulmonary process. 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 Reviewed by: Darshan Simon MD on 12/09/2023 10:56 PM PDT Approved by: Darshan Simon MD on 12/09/2023 10:56 PM PDT Station ID: [id number]
[2023-12-09 23:06] LABS: BILIRUBIN,URINE NEGATIVE (NEGATIVE); GLUCOSE, URINE (UA) NEGATIVE (NEGATIVE); KETONES,URINE (UA) 15 mg/dL (NEGATIVE); LEUKOCYTE ESTERASE, URINE NEGATIVE (NEGATIVE); NITRITE,URINE NEGATIVE (NEGATIVE); OCCULT BLOOD,URINE MODERATE (NEGATIVE); PH,URINE 5.5 PH (5.0-7.5); PROTEIN,URINE 30 mg/dL (NEGATIVE); UROBILINOGEN,URINE 0.2 (NORMAL) E.U./dL (NORMAL)
[2023-12-09 23:10] LABS: ALBUMIN 4.3 g/dL (3.2-5.5); ALBUMIN/GLOBULIN RATIO 1.3 (1.0-2.2); ALKALINE PHOSPHATASE 61 IU/L (42-121); ALT ALANINE AMINOTRANSFERASE 14 IU/L (10-60); AST ASPARTATE AMINOTRANSFERASE 41 IU/L (10-42); BILIRUBIN,TOTAL 0.5 mg/dL (0.2-1.0); BUN - BLOOD UREA NITROGEN 22 mg/dL (6-20); CALCIUM 9.9 mg/dL (8.5-10.3); CARBON DIOXIDE - CO2 25 mmol/L (21-32); CHLORIDE 103 mmol/L (101-111); CREATININE 1.1 mg/dL (0.6-1.3); ETOH - ETHANOL < 10.0 mg/dL; GFR - MDRD 78 (>89); GLUCOSE 108 mg/dL (74-104); POTASSIUM 4.1 mmol/L (3.5-4.5); SODIUM 137 mmol/L (135-145); TOTAL PROTEIN 7.7 g/dL (6.4-8.9)
[2023-12-09 23:21] LABS: CLARITY,URINE CLEAR (CLEAR)
[2023-12-09 23:21] LABS: LIPASE < 10 U/L (11-82)
[2023-12-09 23:23] LABS: BACTERIA,URINE None Seen /HPF (None Seen); RBC,URINE 0-5 /HPF (0-5); SQUAMOUS EPITHELIAL CELL,UR FEW Squamous (<= Few); WBC,URINE 0-3 /HPF (0-3)
[2023-12-09 23:24] LABS: AMPHETAMINE SCREEN,URINE NEGATIVE (NEGATIVE); BARBITURATE SCREEN,UR NEGATIVE (NEGATIVE); BENZODIAZEPINES SCREEN, URINE NEGATIVE (NEGATIVE); BUPRENORPHINE SCREEN, URINE NEGATIVE (NEGATIVE); COCAINE SCREEN URINE NEGATIVE (NEGATIVE); METHADONE SCREEN, URINE NEGATIVE (NEGATIVE); METHAMPHETAMINES SCREEN, URINE NEGATIVE (NEGATIVE); MUCUS,URINE Few Strands; OPIATE SCREEN, URINE NEGATIVE (NEGATIVE); OXYCODONE SCREEN, URINE NEGATIVE (NEGATIVE); THC CANNABINOID SCREEN, URINE NEGATIVE (NEGATIVE); TRICYCLIC ANTIDEPRESSANT,URINE NEGATIVE (NEGATIVE)
[2023-12-10] MEDS: HALOPERIDOL 5 MG/ML VIAL IVP STA (01:00)
[2023-12-10] MEDS: OLANZapine 10 MG VIAL IM STA (01:01)
--- NOTE | 2023-12-10 07:31 | ED Physician Documentation ---
History of Present Illness - Stated complaint Stated Complaint: FOUND DOWN/AMS - Chief complaint Chief Complaint: Neuro - History obtained from History obtained from: EMS - Additonal information Additional information: The patient is brought to the emergency department by EMS for chief complaint of "found down". The patient lives at home by himself and has no family nearby. Neighbor apparently called for a wellness check because the patient had not been seen since the prior morning. The police came and kicked the door down and patient was found to be laying on the floor. He was awake but did not remember falling. The patient was ambulatory once helped to his feet. He has no complaints of pain whatsoever. He states he does not feel sick. He is not anticoagulated. PD PAST MEDICAL HISTORY - Past Medical History Cardiovascular: Hypertension, Other Respiratory: None Endocrine/Autoimmune: None GI: None : Other HEENT: Glaucoma Psych: None Musculoskeletal: Osteoarthritis, Gout Derm: None - Past Surgical History General: Colonoscopy - Present Medications Home Medications: Ambulatory Orders Medication Instructions Recorded Confirmed Amlodipine Besylate/Benazepril 5 mg ORAL DAILY 04/24/14 12/09/23 [Lotrel 10-40 mg Capsule] Hydrochlorothiazide 12.5 mg ORAL DAILY 04/24/14 12/09/23 allopurinoL [Zyloprim] 1 mg ORAL DAILY 04/24/14 12/09/23 Benazepril HCl [Lotensin] 1 tab PO DAILY 04/11/21 12/09/23 Dorzolamide HCl/Pf [Dorzolamide 2% 1 drops EACHEYE DAILY 04/11/21 12/09/23 Eye Drop] Metoprolol Succinate [Toprol Xl] 1 tab PO DAILY 04/11/21 12/09/23 traMADol [Ultram] 50 mg PO DAILY 12/09/23 12/09/23 - Allergies Allergies/Adverse Reactions: Allergies Allergy/AdvReac Type Severity Reaction Status Date / Time No Known Drug Allergies Allergy Verified 11/21/22 17:39 - Social History Does the pt smoke?: No Smoking Status: Never smoker Does the pt drink ETOH?: Yes ETOH Use: Beer Does the pt have substance abuse?: No - POLST Patient has POLST: No PD ED PE NORMAL - Vitals Vital signs reviewed: Yes - General General: No acute distress, Well developed/nourished, Other (Alert, oriented to self.) - HEENT HEENT: Atraumatic, PERRL, EOMI, Moist mucous membranes - Neck Neck: Supple, no meningeal sign, No bony TTP - Cardiac Cardiac: RRR, No murmur - Respiratory Respiratory: No respiratory distress, Clear bilaterally - Abdomen Abdomen: Soft, Non tender, Non distended - Derm Derm: Normal color, Warm and dry, No rash - Extremities Extremities: No deformity, No edema - Neuro Neuro: Other (Awake, conversant, but oriented to self only. Thinks the year is 1469 and thinks he is in [place]. He cannot tell me the name of the president. Ambulates on a narrow based but somewhat shuffling gait. No focal motor or sensory deficits. No facial droop.) - Psych Psych: Normal mood, Normal affect Results - Vitals Vitals: Vital Signs - 24 hr 12/09/23 12/10/23 12/10/23 22:23 00:30 02:00 Temperature 37.0 C Heart Rate 101 H 98 91 Respiratory 20 16 16 Rate Blood Pressure 165/94 H 153/91 H 172/88 H O2 Saturation 100 99 97 12/10/23 12/10/23 12/10/23 03:00 05:47 07:08 Temperature Heart Rate 78 100 100 Respiratory 16 16 16 Rate Blood Pressure 128/82 H 156/91 H O2 Saturation 96 94 98 Oxygen O2 Source Room air - Labs Labs: Laboratory Tests 12/09/23 12/09/23 12/09/23 22:46 22:46 22:47 WBC 5.4 RBC 4.41 L Hgb 13.7 L Hct 40.9 L MCV 92.7 MCH 31.1 H MCHC 33.5 RDW 14.0 Plt Count 163 MPV 9.4 Neut # (Auto) 3.8 Lymph # (Auto) 0.8 L [place] # (Auto) 0.8 Eos # (Auto) 0.0 Baso # (Auto) 0.0 Absolute Nucleated RBC 0.00 Nucleated RBC % 0.0 Sodium 137 Potassium 4.1 Chloride 103 Carbon Dioxide 25 Anion Gap 9.0 BUN 22 H Creatinine 1.1 Estimated GFR (MDRD) 78 L Glucose 108 H Calcium 9.9 Total Bilirubin 0.5 AST 41 ALT 14 Alkaline Phosphatase 61 Total Protein 7.7 Albumin 4.3 Globulin 3.4 Albumin/Globulin Ratio 1.3 Lipase < 10 L Urine Color YELLOW Urine Clarity CLEAR Urine pH 5.5 Ur Specific [place] >=1.030 H Urine Protein 30 H Urine Glucose (UA) NEGATIVE Urine Ketones 15 H Urine Occult Blood MODERATE H Urine Nitrite NEGATIVE Urine Bilirubin NEGATIVE Urine Urobilinogen 0.2 (NORMAL) Ur Leukocyte Esterase NEGATIVE Urine RBC 0-5 Urine WBC 0-3 Ur Squamous Epith Cells FEW Squamous Urine Bacteria None Seen Urine Mucus Few Strands Ur Microscopic Review INDICATED Urine Culture Comments NOT INDICATED Urine Opiates Screen NEGATIVE Ur Buprenorphine Scrn NEGATIVE Ur Oxycodone Screen NEGATIVE Urine Methadone Screen NEGATIVE Ur Barbiturates Screen NEGATIVE Ur Tricyclics Screen NEGATIVE Ur Phencyclidine Scrn NEGATIVE Ur Amphetamine Screen NEGATIVE U Methamphetamines Scrn NEGATIVE U Benzodiazepines Scrn NEGATIVE Urine Cocaine Screen NEGATIVE U Cannabinoids Screen NEGATIVE Ur Drug Screen Comment CUTOFF CONC BELOW: Ethyl Alcohol < 10.0 - Rads (name of study) CT head Relevant Findings:: Final report received, See rad report (Give) CT C-spine Relevant Findings:: Final report received, See rad report (Negative) PD Medical Decision Making - ED course Complexity details: reviewed results, re-evaluated patient, considered differential, d/w patient ED course: The patient was worked up with labs, EKG, chest x-ray, CT scans of the head and neck, and urinalysis, all of which were unremarkable. I was not sure what had caused the patient's fall or what had caused him to stay on the floor, but given that he had been found to be quite confused I did wonder if he had some degree of dementia at baseline. It does not sound like the patient has much in the way of social supports other than his neighbors and it is possible that he has had dementia that has progressed largely unnoticed. The patient's workup was completely negative. He was hydrated in the emergency department and produced urine and was ambulatory. At this point in time, I felt he should see social work as I cannot be certain he had a safe living situation at home. I have put in a consult for social work at this time and the patient will remain for evaluation by them. Patient signed out to Dr. Rico at change of shift, pending social work eval and final disposition. Departure - Departure
--- NOTE | 2023-12-10 11:00 | PHARMACY PROGRESS NOTE ---
- Best Possible Medication History Admit Date and Time: Processed by: Pharmacy Medications reviewed in ED?: Yes Medication History completed: Yes Patient Interview: Completed Secondary Source(s): Physician records, Insurance records As the person ultimately responsible for medication therapy, providers are able to order a medication from an existing home medication list in [facility] via the "Reconcile Routine" prior to Confirmation of that medication by passport support associate. Such practice is discouraged except when the physician, in their clinical judgment, deems that a medical need exists for a medication without regard to previous use.
[2023-12-10] MEDS ORDERED: ACETAMINOPHEN 500 MG TABLET PO PRN (16:36)
[2023-12-10] MEDS ORDERED: ONDANSETRON 4 MG/2 ML VIAL IVP PRN (16:36)
--- NOTE | 2023-12-10 16:44 | ED Physician Documentation ---
ED Addendum - Addendum Addendum: 12/10/23 16:43 Social work talked with apparently a family member who lives out of town and is coming to would be to help take care. They had contacted several friends or neighbors to home in and assist the patient but could not get any volunteers. At this point the patient is maintaining here in the ER pending a more clear safe discharge. I did write for his usual home medications and holding orders for the patient here in the ER presuming he will be her the next day or more.
[2023-12-10] MEDS: PANTOPRAZOLE 40 MG TABLET PO SCH (17:09)
[2023-12-10] MEDS: hydroCHLOROthiazide 25 MG TABLET PO STA (17:09)
[2023-12-10] MEDS: ACETAMINOPHEN 325 MG TABLET PO SCH (17:09)
[2023-12-10] MEDS: amLODIPine 5 MG TABLET PO STA (17:09)
--- NOTE | 2023-12-10 17:49 | XRAY Report ---
PROCEDURE: Chest 1V INDICATIONS: hypoxia TECHNIQUE: One view of the chest was acquired. COMPARISON: Chest x-ray 12/09/2023 FINDINGS: Surgical changes and devices: None. Lungs and pleura: No pleural effusions or pneumothorax. Lungs are clear. Chronic asymmetric left hemidiaphragm elevation. Mediastinum: Mediastinal contours appear normal. Heart size is normal. Bones and chest wall: No suspicious bony lesions. Overlying soft tissues appear unremarkable. IMPRESSION: No acute cardiopulmonary process. Reviewed by: Tracie Cameron MD on 12/10/2023 5:47 PM PDT Approved by: Tracie Cameron MD on 12/10/2023 5:47 PM PDT Station ID: [id number]
[2023-12-10 18:17] LABS: B. PARAPERTUSSIS- RESP PCR PAN NOT DETECTED; B. PERTUSSIS- RESP PCR PANEL NOT DETECTED; C. PNEUMONIAE- RESP PCR PANEL NOT DETECTED; CORONAVIRUS 229E-RESP PCR NOT DETECTED; CORONAVIRUS HKU1-RESP PCR NOT DETECTED; CORONAVIRUS NL63-RESP PCR NOT DETECTED; CORONAVIRUS OC43-RESP PCR NOT DETECTED; HUMAN METAPNEUMOVIRUS NOT DETECTED; INFLUENZA A- RESP PCR PANEL NOT DETECTED; INFLUENZA B - RESP PCR PANEL NOT DETECTED; M. PNEUMONIAE- RESP PCR PANEL NOT DETECTED; PARAINFLUENZA VIRUS 1 NOT DETECTED; PARAINFLUENZA VIRUS 2 NOT DETECTED; PARAINFLUENZA VIRUS 3 NOT DETECTED; PARAINFLUENZA VIRUS 4 NOT DETECTED; RHINOVIRUS/ENTEROVIRUS NOT DETECTED; RSV- RESP PCR PANEL NOT DETECTED
[2023-12-10 18:20] LABS: SARS-CoV-2 -RESP PCR PANEL DETECTED
--- NOTE | 2023-12-10 19:11 | ED Physician Documentation ---
ED Addendum - Addendum Addendum: 12/10/23 19:10 Patient with hypoxia and covid. Found down yesterday at his house. Initially was not hypoxic, but has become hypoxic today, 87/88% consistently on room air. placed on oxygen. COVID+. Patient's hypoxia did not resolve with nebulizer treatments. We will admit the patient for further care of his COVID with hypoxia. Discussed the case with nighttime hospitalist who accepts. This document was made in part using voice recognition software. While efforts are made to proofread this document, sound alike and grammatical errors may occur. Departure - Departure Disposition: [facility] DC/Xfer Clinical Impression: Generalized weakness, COVID-19 virus infection, Hypoxia Condition: Stable Discharge Date/Time: 12/10/23 21:30
[2023-12-10] MEDS: ALBUTEROL 1 PUFF INH SCH (19:20)
[2023-12-10] MEDS ORDERED: polyethylene glycoL 3350 17 GM PACKET PO PRN (20:17)
[2023-12-10] MEDS ORDERED: ACETAMINOPHEN 325 MG TABLET PO PRN (20:21)
--- NOTE | 2023-12-10 20:55 | HISTORY & PHYSICAL EXAMINATION ---
Chief Complaint - Chief Complaint Chief Complaint: found down. has likely dementia History of Present Illness - Admitted From Admitted From:: ED - History Obtained From Records Reviewed: EMR History obtained from: ED staff Exam Limitations: tele medicine - History of Present Illness HPI Comment/Other: 83M c hypertension and likely dementia who was found down at home. Patient cannot remember how he presented in the ED, thinking he was in a car accident. He is not aware of any respiratory issues. ED staff reports patient was found down in his home alone. His neighbors call emergency services and patient was found down on the ground. He was brought into the ED where initial labs were unrevealing. Patient the following day developed cough and acute need for O2 support. He was tested covid positive. ED staff reached out to hospital medicine for assistance with further medical management. History - Past Medical History Cardiovascular: reports: Hypertension, Other Respiratory: reports: None Endocrine/Autoimmune: reports: None GI: reports: None : reports: Other HEENT: reports: Glaucoma Psych: reports: None Musculoskeletal: reports: Osteoarthritis, Gout Derm: reports: None MRSA Hx?: No - Past Surgical History General: reports: Colonoscopy - POLST Patient has POLST: No Meds/Allgy - Home Medications Home Medications: Ambulatory Orders Medication Instructions Recorded Confirmed allopurinoL [Zyloprim] 100 mg ORAL DAILY 04/24/14 12/10/23 Metoprolol Succinate [Toprol Xl] 25 mg PO DAILY 04/11/21 12/10/23 traMADol [Ultram] 50 mg PO BID 12/09/23 12/10/23 Benazepril HCl [Lotensin] 20 mg PO DAILY 12/10/23 12/10/23 Calcitonin,[place],Synthetic 1 spray ELKE DAILY 12/10/23 12/10/23 [Calcitonin-[place]] Dorzolamide/Timolol Ophth Soln 1 drops TOP BID 12/10/23 12/10/23 [Cosopt] amLODIPine [Norvasc] 5 mg PO DAILY 12/10/23 12/10/23 hydroCHLOROthiazide [Hydrodiuril] 12.5 mg PO DAILY 12/10/23 12/10/23 - Allergies Allergies/Adverse Reactions: Allergies Allergy/AdvReac Type Severity Reaction Status Date / Time No Known Drug Allergies Allergy Verified 11/21/22 17:39 Review of Systems - Other Findings Other Findings: limited. dementia Exam - Vital Signs Reviewed Vital Signs: Yes Vital Signs: Vital Signs x48h Pulse Resp BP Pulse Ox O2 Flow Rate 12/10/23 19:20 100 20 2 12/10/23 18:00 86 20 123/62 95 12/10/23 16:49 97 20 166/93 H 88 L 12/10/23 15:00 88 20 156/75 H 96 12/10/23 13:14 89 20 167/79 H 91 L - Physical Exam General Appearance: positive: No acute distress Eyes Bilateral: positive: Normal inspection ENT: positive: ENT inspection nml Neck: positive: Nml inspection Respiratory: positive: Rhonchi. negative: Breath sounds nml Skin: positive: Color nml Extremities: positive: Nml appearance Neurologic/Psychiatric: negative: Oriented x3 Conclusion/Plan - Problem List (1) Acute hypoxemic respiratory failure due to COVID-19 Conclusion/Plan: remdesivir and breathing treatment and O2 support. followup procalcitonin for concurrent bacterial infection and if there is a role for abx. followup CT imaging and cultures for role for abx. (2) Bronchitis due to COVID-19 virus Conclusion/Plan: remdesivir and breathing treatment and O2 support (3) Dementia Conclusion/Plan: remdesivir and breathing treatment and O2 support. followup procalcitonin for concurrent bacterial infection and if there is a role for abx. followup CT imaging and cultures for role for abx. (4) Hypertension Conclusion/Plan: managed. cover with home antihypertensives. monitor electrolytes with BMP. monitor bp with repeat vitals. - Lab Results Lab results reviewed: Yes Fish Bones: 12/09/23 22:46 12/09/23 22:46 - Diagnostic Imaging Results Diagnostic Imaging Results: positive: Final report reviewed Core Measures - Anticipated LOS I expect patient to be DC'd or transferred within 96 hours.: Yes - Issues Hospital Issues and Management Plan: The patient consented to receive this telemedicine service, which I performed via live two-way audiovisual equipment. The patient is at ([facility]) and I am physically in [facility]. A nurse assisted me in the visit. Full code Niece SCDs, Heparin Inpatient - DVT/VTE - Prophylaxis VTE/DVT Device ordered at admit?: Yes Telemedicine Consult Details - Provider Location & Consult Time Telemedicine consultation conducted via videoconferencing?: Yes List names and roles of persons who participated in consult:: ED staff Telemedicine provider location:: [facility] Time Telemedicine consult began:: 20:05 Time Telemedicine consult completed:: 21:10
[2023-12-10] MEDS ORDERED: traMADol 50 MG TABLET PO PRN (21:01)
[2023-12-10] MEDS: HEPARIN 5,000 UNIT/ML VIAL SUBQ SCH (22:30)
[2023-12-10] MEDS: DORZOLAMIDE/TIMOLOL OPHTH DROPS EACHEYE SCH (22:33)
[2023-12-10] MEDS: IPRATROPIUM/ALBUTEROL 3 ML NEB INH SCH (23:01)
--- NOTE | 2023-12-10 23:19 | CT Report ---
PROCEDURE: Chest WO INDICATIONS: evaluate for infection TECHNIQUE: A CT scan of the chest was performed. Intravenous contrast media was not administered. Images were re corded and evaluated at appropriate window settings. Reformats: axial MIP of the chest, coronal and s agittal. For radiation dose reduction, the following was used: automated exposure control, adjustment of mA and/or kV according to patient size. COMPARISON: None. FINDINGS: Image quality: Diagnostic. Chest wall and lower neck: No thyroid nodule which requires sonographic follow up. No axillary or sup raclavicular adenopathy by size. No chest wall mass. Lungs and pleura: There are several scattered patchy groundglass opacities along the posterior aspect of the right upper lobe. Bilateral lower lobes demonstrate moderate bronchial wall thickening and fi brotic changes medially at the right lung base and posteriorly at the left lung base. No significant pleural effusion. Mediastinum: Heart size is normal. Heavy coronary artery calcification versus stenting. No pericardia l effusion. No large vessel abnormality. No mediastinal adenopathy by size criteria. Bones: Anterior vertebral body ankylosis of the thoracic spine. Degenerative-appearing superior endpl ate depression of L1. Upper Abdomen: Dictated separately IMPRESSION: Small patchy opacities in the posterior right upper lobe are suggestive of acute infection. Bilateral lower lobe bronchitis with fibrotic changes suggesting longer standing process. Heavy coronary calcification. Reviewed by: Yamini Thao MD on 12/10/2023 11:18 PM PDT Approved by: Yamini Thao MD on 12/10/2023 11:18 PM PDT Station ID: [id number]
--- NOTE | 2023-12-10 23:26 | CT Report ---
PROCEDURE: Abdomen/Pelvis WO INDICATIONS: evaluated for hematuria TECHNIQUE: A CT scan of the abdomen and pelvis was performed without the use of intravenous contrast. Images we re recorded and evaluated at appropriate window settings. Reformats: coronal and sagittal. For radiat ion dose reduction, the following was used: automated exposure control, adjustment of mA and/or kV ac cording to patient size. COMPARISON: 08/13/2019 FINDINGS: Image quality: Diagnostic. Lower chest: Dictated separately Liver: No contour-deforming mass. Gallbladder and biliary tree: No radiopaque stones or wall thickening. No biliary dilation. There is probably gallbladder sludge layering dependently. Spleen: No splenomegaly. Pancreas: No visible abnormality. Adrenals: Chronic bilateral adrenal thickening. Kidneys and ureters: Exophytic left lower pole cyst no hydronephrosis or stone. No perinephric inflam mation. Normal ureters. Stomach, bowel and peritoneum: Several mildly prominent loops of bowel are anteriorly with air-fluid levels suggesting ileus. No visible transition point. Normal appendix. Normal quantity of gas and sto ol in the colon. No free pelvic fluid or free air. Lymph nodes: No central or retroperitoneal adenopathy. Vessels: No infrarenal aortic aneurysm. PELVIS Reproductive organs: Brachytherapy seeds throughout the prostate gland. Bladder: No wall thickening or calcifications. Pelvic lymph nodes: No pelvic adenopathy by size criteria. Bones: No aggressive osseous abnormality. There is L1 compression fracture superior endplate which is new since 2019. Other: A bowel containing, nonobstructing left indirect inguinal hernia. IMPRESSION: No evidence of urinary calcification or obstructive uropathy. Normal urinary bladder. L1 compression fracture has occurred since 08/13/2019. A bowel containing, but nonobstructing indirect left hernia. Reviewed by: Yamini Thao MD on 12/10/2023 11:24 PM PDT Approved by: Yamini Thao MD on 12/10/2023 11:24 PM PDT Station ID: [id number]
[2023-12-11] MEDS: SODIUM CHLORIDE FLUSH 0.9% 10 ML SYRINGE IVP SCH (01:12)
[2023-12-11 05:46] LABS: HCT - HEMATOCRIT 34.9 % (42.0-52.0); HGB - HEMOGLOBIN 11.9 g/dL (14.0-18.0); LYMPHOCYTES # (AUTO) 0.8 10^3/uL (1.5-3.5); LYMPHOCYTES % (AUTO) 21.8 %; MEAN CORPUSCULAR HEMOGLOBIN 31.2 pg (27.0-31.0); MEAN CORPUSCULAR HGB CONC 34.1 g/dL (32.0-36.0); MEAN CORPUSCULAR VOLUME 91.6 fL (80.0-94.0); MEAN PLATELET VOLUME 9.5 fL (7.4-11.4); MONOCYTES # (AUTO) 0.5 10^3/uL (0.0-1.0); NEUTROPHILS # (AUTO) 2.4 10^3/uL (1.5-6.6); NEUTROPHILS % (AUTO) 65.2 %; PLT - PLATELET COUNT 133 10^3/uL (130-450); RED BLOOD COUNT 3.81 10^6/uL (4.70-6.10); RED CELL DISTRIBUTION WIDTH 14.1 % (12.0-15.0); WHITE BLOOD COUNT 3.6 x10^3/uL (4.8-10.8)
[2023-12-11 05:55] LABS: CALCIUM 9.3 mg/dL (8.5-10.3); MAGNESIUM 1.8 mg/dL (1.7-2.3); PHOSPHORUS 2.9 mg/dL (2.5-5.0); POTASSIUM 3.6 mmol/L (3.5-4.5)
[2023-12-11] MEDS: lisinopriL 20 MG TABLET PO SCH (08:30)
[2023-12-11] MEDS: ACETAMINOPHEN 325 MG TABLET PO PRN (08:30)
[2023-12-11] MEDS: METOPROLOL SUCCINATE 25 MG TABLET PO SCH (08:31)
[2023-12-11] MEDS: allopurinoL 100 MG TABLET PO SCH (08:31)
[2023-12-11] MEDS: amLODIPine 5 MG TABLET PO SCH (08:31)
[2023-12-11] MEDS: CALCITONIN NASAL SPRAY NAS SCH (09:15)
[2023-12-11] MEDS ORDERED: REMDESIVIR 200 MG in SODIUM CHLORIDE 0.9% 250 ML IV ONE (12:00)
--- NOTE | 2023-12-11 14:16 | PROVIDER PROGRESS NOTE ---
Subjective - Prog Note Date Prog Note Date: 12/11/23 Prog Note Time: 14:13 - Subjective Pt reports feeling: No change Subjective: in discussing his positive COVID status, he thinks he has been sick for "a long time". In talking to friends and neighbors nursing has been able to track down and illness date of December 02. So even though he was started on remdesivir and steroids for COVID with this admission, I am stopping that because he does not qualify. He is requiring 2 L nasal cannula to maintain O2 sats at 96%. Phlegmy, croupy but nonproductive cough. He may be able to bring up something but he is swallowing it. Social work has been in contact with torstenece. Family lives in [place]. They have been trying to convince him to move to [place] for several years now since his and he has been reluctant to do so. They do speak to him on the phone once or twice a week. They did not feel he had any problems with memory. All of this news about his memory loss and self-neglect is new for them. his niece did try and call for protestant members and neighbors to see if anyone would be able to take care of him once he left the hospital. They have all reported to her that his house is hazard. It is filthy, unable to be ambulated without risk to themselves. Niece is flying out on December 11 from [place]. Current Medications - Current Medications Current Medications: Active Medications Acetaminophen (Acetaminophen 325 Mg Tablet) 650 mg PO QID PRN PRN Reason: Fever >101 Albuterol/Ipratropium (Ipratropium/Albuterol 3 Ml Neb) 3 ml INH Q6HR KELLY Last Admin: 12/11/23 13:38 Dose: 3 ml Allopurinol (Allopurinol 100 Mg Tablet) 100 mg PO DAILY KELLY Last Admin: 12/11/23 08:31 Dose: 100 mg Amlodipine Besylate (Amlodipine 5 Mg Tablet) 5 mg PO DAILY KELLY Last Admin: 12/11/23 08:31 Dose: 5 mg Calcitonin Sherrill (Calcitonin Nasal [place]) 1 sprays ELKE DAILY [facility] Last Admin: 12/11/23 09:15 Dose: 1 spray Heparin Sodium (Porcine) (Heparin 5,000 Unit/Ml Vial) 5,000 unit SUBQ BID [facility] Last Admin: 05/21/24 08:28 Dose: 5,000 unit Hydrochlorothiazide (Hydrochlorothiazide 25 Mg Tablet) 12.5 mg PO DAILY [facility] Lisinopril (Lisinopril 20 Mg Tablet) 20 mg PO DAILY [facility] Last Admin: 12/11/23 08:30 Dose: 20 mg Metoprolol Succinate (Metoprolol Succinate 25 Mg Tablet) 25 mg PO DAILY [facility] Non-Formulary Medication (Dorzolamide/Timolol Ophth Soln [Cosopt]) 1 drops TOP BID [facility] Polyethylene Glycol (Polyethylene Glycol 3350 17 Gm Packet) 17 gm PO DAILY PRN PRN Reason: Constipation Sodium Chloride (Sodium Chloride Flush 0.9% 10 Ml Syringe) 10 ml IVP PRN PRN PRN Reason: NEEDED PER PROVIDER ORDERS Sodium Chloride (Sodium Chloride Flush 0.9% 10 Ml Syringe) 10 ml IVP 0100,0900,1700 [facility] Last Admin: 12/11/23 08:31 Dose: 10 ml Tramadol HCl (Tramadol 50 Mg Tablet) 50 mg PO BID PRN PRN Reason: PAIN 5-7 allopurinoL [Zyloprim] 100 mg ORAL DAILY 04/24/14 Metoprolol Succinate [Toprol Xl] 25 mg PO DAILY 04/11/21 traMADol [Ultram] 50 mg PO BID 12/09/23 Benazepril HCl [Lotensin] 20 mg PO DAILY 12/10/23 Calcitonin,Sherrill,Synthetic [Calcitonin-Sherrill] 1 spray ELKE DAILY 12/10/23 Dorzolamide/Timolol Ophth Soln [Cosopt] 1 drops TOP BID 12/10/23 amLODIPine [Norvasc] 5 mg PO DAILY 12/10/23 hydroCHLOROthiazide [Hydrodiuril] 12.5 mg PO DAILY 12/10/23 Objective - Vital Signs/Intake & Output Reviewed Vital Signs: Yes Vital Signs: Vital Signs x48h Temp Pulse Pulse Resp BP Pulse Ox O2 Flow Rate 12/11/23 13:39 90 22 2 12/11/23 12:27 37 C 87 20 102/59 L 96 2 12/11/23 09:00 37.6 C 12/11/23 08:22 38.1 C H 95 20 119/72 92 2 12/11/23 07:25 2 12/11/23 07:16 88 22 1 Intake & Output: Intake & Output 12/08/23 12/09/23 12/10/23 05/21/24 23:59 23:59 23:59 23:59 Intake Total 1000 1160 Output Total 400 Balance 1000 760 - Objective General Appearance: positive: No acute distress, Alert, Other ( Frail elderly gentleman with a bronchitic phlegmy cough sitting upright in bed. No tachypnea or use of accessory muscles but has no insight to where he is, why he is here, or timeframe) Eyes Bilateral: positive: PERRL, EOMI ENT: positive: No signs of dehydration Neck: positive: No JVD. negative: Stiff neck Respiratory: positive: No respiratory distress, Rhonchi ( intermittent croupy cough, not spasmodic). negative: Wheezes Cardiovascular: positive: Regular rate & rhythm, Systolic murmur Abdomen: positive: Non-tender, No organomegaly, Nml bowel sounds, No distention Skin: positive: Warm, Dry Extremities: positive: Full ROM, No pedal edema Neurologic/Psychiatric: positive: CN's nml (2-12), Motor nml, Disoriented to place, Disoriented to time - Lab Results Fish Bones: 12/11/23 05:36 12/11/23 05:36 Other Labs: Lab Results x24hrs 12/11/23 12/11/23 12/11/23 Range/Units 05:36 05:36 01:49 WBC 3.6 L (4.8-10.8) x10^3/uL RBC 3.81 L (4.70-6.10) 10^6/uL Hgb 11.9 L (14.0-18.0) g/dL Hct 34.9 L (42.0-52.0) % MCV 91.6 (80.0-94.0) fL MCH 31.2 H (27.0-31.0) pg MCHC 34.1 (32.0-36.0) g/dL RDW 14.1 (12.0-15.0) % Plt Count 133 (130-450) 10^3/uL MPV 9.5 (7.4-11.4) fL Neut # (Auto) 2.4 (1.5-6.6) 10^3/uL Lymph # (Auto) 0.8 L (1.5-3.5) 10^3/uL [place]oshone # (Auto) 0.5 (0.0-1.0) 10^3/uL Eos # (Auto) 0.0 (0.0-0.7) 10^3/uL Baso # (Auto) 0.0 (0.0-0.1) 10^3/uL Absolute Nucleated RBC 0.00 x10^3/uL Nucleated RBC % 0.0 /100WBC Sodium 136 (135-145) mmol/L Potassium 3.6 (3.5-4.5) mmol/L Chloride 104 (101-111) mmol/L Carbon Dioxide 26 (21-32) mmol/L Anion Gap 6.0 (6-13) BUN 20 (6-20) mg/dL Creatinine 1.0 (0.6-1.3) mg/dL Estimated GFR (MDRD) 87 L (>89) Glucose 128 H (74-104) mg/dL Calcium 9.3 (8.5-10.3) mg/dL Phosphorus 2.9 (2.5-5.0) mg/dL Magnesium 1.8 (1.7-2.3) mg/dL Procalcitonin Immunoas 1.21 H (<0.5) ng/mL Nasal Adenovirus (PCR) Nasal B. parapertussis DNA (PCR) Nasal Coronavir 229E PCR Nasal Coronavir HKU1 PCR Nasal Coronavir NL63 PCR Nasal Coronavir OC43 PCR Nasal Enterovir/Rhinovir PCR Nasal Influenza B PCR Nasal Influenza A PCR Nasal Parainfluen 1 PCR Nasal Parainfluen 2 PCR Nasal Parainfluen 3 PCR Nasal Parainfluen 4 PCR Nasal RSV (PCR) Nasal B.pertussis DNA PCR Nasal C.pneumoniae (PCR) Elke Human Metapneumo PCR Nasal M.pneumoniae (PCR) Nasal SARS-CoV-2 (PCR) 12/10/23 Range/Units 17:17 WBC (4.8-10.8) x10^3/uL RBC (4.70-6.10) 10^6/uL Hgb (14.0-18.0) g/dL Hct (42.0-52.0) % MCV (80.0-94.0) fL MCH (27.0-31.0) pg MCHC (32.0-36.0) g/dL RDW (12.0-15.0) % Plt Count (130-450) 10^3/uL MPV (7.4-11.4) fL Neut # (Auto) (1.5-6.6) 10^3/uL Lymph # (Auto) (1.5-3.5) 10^3/uL [place]osh[place] # (Auto) (0.0-1.0) 10^3/uL Eos # (Auto) (0.0-0.7) 10^3/uL Baso # (Auto) (0.0-0.1) 10^3/uL Absolute Nucleated RBC x10^3/uL Nucleated RBC % /100WBC Sodium (135-145) mmol/L Potassium (3.5-4.5) mmol/L Chloride (101-111) mmol/L Carbon Dioxide (21-32) mmol/L Anion Gap (6-13) BUN (6-20) mg/dL Creatinine (0.6-1.3) mg/dL Estimated GFR (MDRD) (>89) Glucose (74-104) mg/dL Calcium (8.5-10.3) mg/dL Phosphorus (2.5-5.0) mg/dL Magnesium (1.7-2.3) mg/dL Procalcitonin Immunoas (<0.5) ng/mL Nasal Adenovirus (PCR) NOT DETECTED Nasal B. parapertussis DNA (PCR) NOT DETECTED Nasal Coronavir 229E PCR NOT DETECTED Nasal Coronavir HKU1 PCR NOT DETECTED Nasal Coronavir NL63 PCR NOT DETECTED Nasal Coronavir OC43 PCR NOT DETECTED Nasal Enterovir/Rhinovir PCR NOT DETECTED Nasal Influenza B PCR NOT DETECTED Nasal Influenza A PCR NOT DETECTED Nasal Parainfluen 1 PCR NOT DETECTED Nasal Parainfluen 2 PCR NOT DETECTED Nasal Parainfluen 3 PCR NOT DETECTED Nasal Parainfluen 4 PCR NOT DETECTED Nasal RSV (PCR) NOT DETECTED Nasal B.pertussis DNA PCR NOT DETECTED Nasal C.pneumoniae (PCR) NOT DETECTED Elke Human Metapneumo PCR NOT DETECTED Nasal M.pneumoniae (PCR) NOT DETECTED Nasal SARS-CoV-2 (PCR) DETECTED A - Diagnostic Imaging Diagnostic Imaging Results: positive: Final report reviewed Diagnostic Imaging Comments: CT of chest has scattered groundglass opacities along the posterior aspect of the right upper lobe. Bilateral lower lobe with moderate bronchial wall thickening and fibrotic changes medially at the right lung base and posteriorly at the left lung base. No pleural effusion. Heavy coronary artery calcific changes versus stenting. All of this is suggestive of acute infection and the bilateral lower bronchitis with fibrotic changes suggest a longer standing process. Sputum Gram stain has white cells, but greater than 10 epithelial cells. He has gram-positive cocci, gram-positive cocci in pairs and chains, few gram-positive rods ABX Reporting Has patient been on IV antibiotics over the past 48 hours?: No Sepsis Event Note (H) - Evaluation Current Stage of Sepsis: Ruled out Assessment/Plan - Problem List (1) Acute hypoxemic respiratory failure due to COVID-19 Impression: COVID symptoms began 8 days ago. As such the patient is not a candidate for remdesivir and steroids and as such the remdesivir has been stopped by me. Sputum cultures not helpful at this time and the patient is still hypoxic Plan: Continue oxygen for support to maintain O2 sats greater than 92% Nebulizers as needed Start empiric antibiotics (2) Bronchitis due to COVID-19 virus Impression: on DuoNeb. I will add Solu-Medrol. (3) Dementia Impression: Unfortunately this may proved to be a barrier for him getting better. While he is not delirious and he is not combative, he really does not understand that he needs to sit up, clear hisPhlegm. Qualifiers: Dementia type: Alzheimer's (4) Generalized weakness Impression: PT and OT evaluation have been ordered for today.
[2023-12-11] MEDS: cefTRIAXone 1 GM in SODIUM CHLORIDE 0.9% MINIBAG 100 ML IV SCH (19:41)
[2023-12-11] MEDS: AZITHROMYCIN INJ 500 MG in SODIUM CHLORIDE 0.9% 250 ML IV SCH (21:00)
[2023-12-11] MEDS ORDERED: DORZOLAMIDE TOP SCH (21:00)
[2023-12-11] MEDS ORDERED: TIMOLOL TOP SCH (21:00)
[2023-12-11] MEDS: DORZOLAMIDE/TIMOLOL OPHTH DROPS EACHEYE SCH (21:04)
[2023-12-11] MEDS: methylPREDNISolone SUCCINATE 40 MG/ML VIAL IVP SCH (21:07)
[2023-12-12] MEDS: SODIUM CHLORIDE FLUSH 0.9% 10 ML SYRINGE IVP PRN (05:59)
[2023-12-12] MEDS ORDERED: IPRATROPIUM/ALBUTEROL 3 ML NEB INH SCH (07:00)
--- NOTE | 2023-12-12 08:03 | PROVIDER PROGRESS NOTE ---
Subjective - Prog Note Date Prog Note Date: 12/12/23 Prog Note Time: 08:00 - Subjective Pt reports feeling: No change Subjective: The patient is resting in his bed. He says that he has quite a bit of congestion and he has been coughing quite a bit. Apparently talking to the patient's friends and neighbors, nursing has been able to track down that the patient got sick around December 02. Nursing staff also reports that apparently the patient lives alone but has not been doing well. His family is in [place] and have been trying to get him to move there for quite some time but he has been resistant. Apparently his house is in disarray and quite filthy and he has not been caring for himself well. It is suspected that he has some underlying dementia. His niece is flying in today from [place] to assess the situation and try to figure out his disposition when he gets out of the hospital When I went to see the patient today he is sleeping. He was easily arousable, answer questions appropriately. He was alert and oriented x 3. He knew that he was in the hospital and COVID ospina, he knew the year and he also knew the ceo and president. However he does get confused. He was talking about his family and I asked where in [place] they lived and he told me they lived in [place]. He tells me that he feels weak. He says that he normally ambulates without any assistive devices. He says he has a cough that is keeping him up at night. He tells me that he has been using his flutter valve and he actually used it 2 times while I was in the room. He denies fever or shaking chills. He states that he has some chest discomfort when he coughs. He reports a cough and is coughing up some sputum. He has had no nausea vomiting or diarrhea. No abdominal pain. He cannot recall if he has had a bowel movement. He reports no urinary complaints Current Medications - Current Medications Current Medications: Allopurinol 100 mg daily Amlodipine 5 mg daily Azithromycin 250 mg IV every 24 hours Calcitonin salmon 1 spray each nostril daily Ceftriaxone 1 g daily Dorzolamide/timolol 1 drop each eye twice daily Heparin 5000 units SQ twice daily Hydrochlorothiazide 12.5 mg daily Lisinopril 20 mg daily Solu-Medrol 40 mg IV every 8 hours Metoprolol succinate 25 mg daily MiraLAX 17 g p.o. daily as needed Tramadol 50 mg p.o. twice daily as needed pain Tylenol 650 mg p.o. 4 times daily as needed fever greater than 101 Objective - Vital Signs/Intake & Output Reviewed Vital Signs: Yes Vital Signs: Vital Signs x48h Temp Pulse Resp BP BP Pulse Ox O2 Flow Rate 12/12/23 06:13 83 105/60 12/12/23 06:12 83 123/64 12/12/23 06:00 36.3 C L 82 20 134/83 H 94 2 12/12/23 01:01 37.1 C 88 20 135/74 H 92 2 12/12/23 01:00 37.2 C 92 93/59 L Intake & Output: Intake & Output 12/09/23 12/10/23 12/11/23 12/12/23 23:59 23:59 23:59 23:59 Intake Total 1000 2040 560 Output Total 575 Balance 1000 1465 560 - Objective General Appearance: positive: No acute distress, Alert, Other (Frequently coughing) Eyes Bilateral: positive: Normal inspection ENT: positive: ENT inspection nml Neck: positive: Nml inspection Respiratory: positive: Other (Coarse rhonchi noted throughout all lung montoya bilaterally) Cardiovascular: positive: Regular rate & rhythm. negative: No murmur, No gallop Abdomen: positive: Non-tender, Nml bowel sounds. negative: Tenderness, Guarding, Rebound Skin: positive: Color nml, No rash, Warm, Dry Extremities: positive: Non-tender, Nml appearance, No pedal edema Neurologic/Psychiatric: positive: Oriented x3, Other (However gets confused on details of his life) - Lab Results Fish Bones: 12/11/23 05:36 12/11/23 05:36 - Diagnostic Imaging Diagnostic Imaging Results: positive: Final report reviewed ABX Reporting Has patient been on IV antibiotics over the past 48 hours?: Yes Sepsis Event Note (H) - Evaluation Current Stage of Sepsis: Ruled out Assessment/Plan - Problem List (1) Acute hypoxemic respiratory failure due to COVID-19 Impression: The patient is still requiring 2 L of oxygen with oxygen saturations only in the low 90s. Continue oxygen support as needed. DuoNebs will be stopped due to his COVID-positive and will have an inhaler available. Will titrate oxygen to keep his O2 sats greater than 92% and try to wean him off over the next day or 2. (2) COVID-19 virus infection Impression: The patient is out of the window for remdesivir and this was stopped. He will continue on Solu-Medrol 40 mg IV every 8 hours.Will repeat chest xray today. (3) Bronchitis due to COVID-19 virus Impression: Cannot rule out an underlying pneumonia. This is day #2 of IV ceftriaxone and IV azithromycin. Will repeat a chest x-ray today. Will add Mucinex for his secretions. Continue flutter valve. (4) Hypertension Impression: The patient will continue amlodipine 5 mg daily, and lisinopril 20 mg daily. . The patient's blood pressure was a little low however it was checked in the other arm and was fine. Continue to monitor closely. Will hold his hydrochlorothiazide for now. Qualifiers: Hypertension type: primary hypertension Qualified Code(s): I10 - Essential (primary) hypertension (5) Osteoarthritis Impression: Continue tramadol 50 mg p.o. twice daily as needed for pain. (6) Glaucoma Impression: Continue eyedrops (7) Dementia Impression: The patient appears to have some mild cognitive deficits. He actually was alert and oriented today but does get confused. Further workup can be obtained as an outpatient. (8) Anemia Impression: He has a normocytic anemia likely due to chronic disease. Stable. He will have a CBC drawn in the morning. (9) Generalized weakness Impression: With subsequent ambulatory dysfunction. He will work with physical therapy and Occupational Therapy. The patient should be up to a chair daily. (10) Compression fracture of L1 lumbar vertebra Impression: The patient has a chronic compression fracture of L1 noted on imaging studies. This is likely a pathologic fracture. He has tramadol available for
[2023-12-12] MEDS: METOPROLOL SUCCINATE 25 MG TABLET PO SCH (08:20)
[2023-12-12] MEDS ORDERED: hydroCHLOROthiazide 25 MG TABLET PO SCH (09:00)
[2023-12-12] MEDS ORDERED: REMDESIVIR 100 MG in SODIUM CHLORIDE 0.9% 100ML 100 ML IV SCH (09:00)
[2023-12-12] MEDS: guaiFENesin 600 MG TABLET PO SCH (09:25)
--- NOTE | 2023-12-12 09:50 | XRAY Report ---
PROCEDURE: Chest 2V INDICATIONS: COVID follow up TECHNIQUE: 2 views of the chest were acquired. COMPARISON: CT chest dated 12/10/2023 and chest radiograph dated 12/10/2023, 12/09/2023 and 10/08/2014. FINDINGS: Surgical changes and devices: None. Lungs and pleura: No pleural effusions or pneumothorax. Patient's known right upper lobe opacity is not well seen on the current radiograph. Subtle opacity in right infrahilar region, small infiltrate versus atelectasis is suspected. Left lung is clear. Mediastinum: Mediastinal contours appear normal. Heart size is normal. Bones and chest wall: No suspicious bony lesions. Overlying soft tissues appear unremarkable. IMPRESSION: Patient's CT finding of right upper lobe infiltrate is not appreciated on this study. Suggestion of s mall infiltrate versus atelectasis at right lung base. No pleural effusion. Reviewed by: Marino Pennington MD on 12/12/2023 9:49 AM PDT Approved by: Marino Pennington MD on 12/12/2023 9:49 AM PDT Station ID: [id number]
[2023-12-13 05:34] LABS: HCT - HEMATOCRIT 33.2 % (42.0-52.0); HGB - HEMOGLOBIN 11.3 g/dL (14.0-18.0); LYMPHOCYTES # (AUTO) 0.5 10^3/uL (1.5-3.5); LYMPHOCYTES % (AUTO) 11.2 %; MEAN CORPUSCULAR HEMOGLOBIN 30.8 pg (27.0-31.0); MEAN CORPUSCULAR VOLUME 90.5 fL (80.0-94.0); MEAN PLATELET VOLUME 10.1 fL (7.4-11.4); MONOCYTES # (AUTO) 0.2 10^3/uL (0.0-1.0); MONOCYTES % (AUTO) 3.9 %; NEUTROPHILS # (AUTO) 3.7 10^3/uL (1.5-6.6); NEUTROPHILS % (AUTO) 84.7 %; PLT - PLATELET COUNT 144 10^3/uL (130-450); RED BLOOD COUNT 3.67 10^6/uL (4.70-6.10); RED CELL DISTRIBUTION WIDTH 14.4 % (12.0-15.0); WHITE BLOOD COUNT 4.4 x10^3/uL (4.8-10.8)
[2023-12-13 05:52] LABS: CALCIUM 9.3 mg/dL (8.5-10.3); MAGNESIUM 2.1 mg/dL (1.7-2.3)
[2023-12-13 12:30] VITALS: BP 164/93; O2SAT 97
--- NOTE | 2023-12-13 12:30 | PROVIDER PROGRESS NOTE ---
Subjective - Prog Note Date Prog Note Date: 12/13/23 - Subjective Pt reports feeling: Improved Current Medications - Current Medications Current Medications: Tylenol 650 mg p.o. 4 times daily as needed fever Albuterol 2 puffs inhalation every 4 hours as needed wheezing Allopurinol 100 mg daily Amlodipine 5 mg daily Azithromycin 250 mg IV every 24 hours Calcitonin salmon 1 spray each nostril daily Ceftriaxone 1 g daily Guaifenesin 600 mg p.o. twice daily heparin 5000 units SQ twice daily Lisinopril 20 mg daily Solu-Medrol 40 mg IV 3 times daily Metoprolol succinate 25 mg daily MiraLAX 17 g daily Tramadol 50 mg p.o. twice daily as needed pain 57 Objective - Vital Signs/Intake & Output Vital Signs: Vital Signs x48h Temp Pulse Resp BP Pulse Ox 12/13/23 12:20 36.7 C 79 18 164/93 H 97 12/13/23 08:40 37.1 C 71 18 170/93 H 96 12/13/23 05:08 36.6 C 75 18 166/94 H 97 Intake & Output: Intake & Output 12/10/23 12/11/23 12/12/23 12/13/23 23:59 23:59 23:59 23:59 Intake Total 2040 2190 590 Output Total 575 200 Balance 1465 1990 590 - Lab Results Fish Bones: 12/13/23 05:10 12/13/23 05:10 Other Labs: Lab Results x24hrs 12/13/23 12/13/23 Range/Units 05:10 05:10 WBC 4.4 L (4.8-10.8) x10^3/uL RBC 3.67 L (4.70-6.10) 10^6/uL Hgb 11.3 L (14.0-18.0) g/dL Hct 33.2 L (42.0-52.0) % MCV 90.5 (80.0-94.0) fL MCH 30.8 (27.0-31.0) pg MCHC 34.0 (32.0-36.0) g/dL RDW 14.4 (12.0-15.0) % Plt Count 144 (130-450) 10^3/uL MPV 10.1 (7.4-11.4) fL Neut # (Auto) 3.7 (1.5-6.6) 10^3/uL Lymph # (Auto) 0.5 L (1.5-3.5) 10^3/uL [place] # (Auto) 0.2 (0.0-1.0) 10^3/uL Eos # (Auto) 0.0 (0.0-0.7) 10^3/uL Baso # (Auto) 0.0 (0.0-0.1) 10^3/uL Absolute Nucleated RBC 0.00 x10^3/uL Nucleated RBC % 0.0 /100WBC Sodium 134 L (135-145) mmol/L Potassium 4.0 (3.5-4.5) mmol/L Chloride 102 (101-111) mmol/L Carbon Dioxide 25 (21-32) mmol/L Anion Gap 7.0 (6-13) BUN 34 H (6-20) mg/dL Creatinine 1.0 (0.6-1.3) mg/dL Estimated GFR (MDRD) 87 L (>89) Glucose 160 H (74-104) mg/dL Calcium 9.3 (8.5-10.3) mg/dL Magnesium 2.1 (1.7-2.3) mg/dL Sepsis Event Note (H) - Evaluation Current Stage of Sepsis: Ruled out Assessment/Plan - Problem List (4) Hypertension Qualifiers: Hypertension type: primary hypertension Qualified Code(s): I10 - Essential (primary) hypertension
[2023-12-13] MEDS: ALBUTEROL 1 PUFF INH PRN (13:50)
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
[2023-12-13] MEDS ORDERED: ACETAMINOPHEN 325 MG TABLET PO PRN (16:23)
== END 2023-12-13 16:47 | disposition swing bed (61) | DRG 177 ==
LOC: EDUNIT# → ED 21:07 → MS2 12-10 20:17 → MS3 12-13 16:23
PROVIDERS: ADMIT Internal Medicine; ATTEND Physician Assistant
PROC: XW033E5 Introduction of Remdesivir Anti-infective into Peripheral Vein, Percutaneous Approach, New Technology Group 5 (ICD-10-PCS; principal; 2023-12-10)
DX: U07.1 COVID-19 (principal); J96.01 Acute respiratory failure with hypoxia; R09.02 Hypoxemia; J40 Bronchitis, not specified as acute or chronic; I10 Essential (primary) hypertension; Z91.81 History of falling; M19.90 Unspecified osteoarthritis, unspecified site; D64.9 Anemia, unspecified; R53.1 Weakness; M48.56XS Collapsed vertebra, not elsewhere classified, lumbar region, sequela of fracture; Z60.2 Problems related to living alone; G30.9 Alzheimer's disease, unspecified; F02.80 Dementia in other diseases classified elsewhere, unspecified severity, without behavioral disturbance, psychotic disturbance, mood disturbance, and anxiety; H40.9 Unspecified glaucoma
CPT/HCPCS: 36415; 70450; 71045; 71046; 71250; 72125; 74176; 80048; 80053; 80306; 81001; 83690; 83735; 84100; 84145; 85025; 87040; 87077; 87086; 87181; 87205; 87633; 93005; 94640; 97116; 97162; 97530; 99285; A9270; G0480; 81003; 82077; 87070

== ENCOUNTER 2023-12-13 13:29 | Inpatient (IN) | payer MEDICARE, OTHER ==
[2023-12-13] MEDS ORDERED: ACETAMINOPHEN 325 MG TABLET PO PRN ×2 (16:06→16:37)
[2023-12-13] MEDS: predniSONE 20 MG TABLET PO SCH (18:11)
[2023-12-13] MEDS: IPRATROPIUM/ALBUTEROL 3 ML NEB INH SCH (18:39)
[2023-12-13] MEDS: guaiFENesin 600 MG TABLET PO SCH (20:55)
[2023-12-13] MEDS: traMADol 50 MG TABLET PO SCH (20:55)
[2023-12-13] MEDS: DORZOLAMIDE/TIMOLOL OPHTH DROPS EACHEYE SCH (20:55)
[2023-12-13] MEDS: DOXYCYCLINE 100 MG TABLET PO SCH (20:55)
[2023-12-14] MEDS: lisinopriL 5 MG TABLET PO SCH (09:45)
[2023-12-14] MEDS: METOPROLOL SUCCINATE 25 MG TABLET PO SCH (09:45)
[2023-12-14] MEDS: allopurinoL 100 MG TABLET PO SCH (09:45)
[2023-12-14] MEDS: amLODIPine 5 MG TABLET PO SCH (09:46)
[2023-12-14] MEDS: CALCITONIN NASAL SPRAY NAS SCH (10:45)
--- NOTE | 2023-12-14 10:56 | PHARMACY PROGRESS NOTE ---
- Best Possible Medication History Admit Date and Time: 12/13/23 9426 Processed by: Pharmacy Secondary Source(s): Previous admit records As the person ultimately responsible for medication therapy, providers are able to order a medication from an existing home medication list in [facility] via the "Reconcile Routine" prior to Confirmation of that medication by air support control officer. Such practice is discouraged except when the physician, in their clinical judgment, deems that a medical need exists for a medication without regard to previous use.
--- NOTE | 2023-12-14 11:16 | HISTORY & PHYSICAL EXAMINATION ---
Chief Complaint - Chief Complaint Chief Complaint: Weakness and ambulatory dysfunction History of Present Illness - Admitted From Admitted From:: [facility] inpatient - History Obtained From Records Reviewed: Yes History obtained from: Patient and previous hospitalization - History of Present Illness HPI Comment/Other: The patient is an 83-year-old -Slov[place] male with who previously lived by himself. He was recently hospitalized from 12/10/2023 until 12/13/2023 for acute respiratory failure due to COVID-19 infection. He was treated for acute bronchitis. During the course of his hospitalization he was successfully weaned off of oxygen and has been doing well. Nursing staff talking to friends and neighbors found out that he initially makes started getting sick with his COVID infection on December 03, 2023. He was found down outside at his home. He was quite disheveled and apparently his house was extremely filthy and did not shambles. His family lives in [place] and is very supportive and been trying to get him to move to [place] for quite some time but he has been resistant. It became quite obvious upon admission that the patient has some mild cognitive deficits and likely has some underlying early dementia. APS was contacted and at this point is not felt that the patient is safe to go home. His family flew in from [place] and long discussions were had. They have made arrangements in a few days for him to go to subacute rehabilitation on the [place]. After that they plan to move him to [place]. The patient is agreeable to this plan. The patient has been discharged from acute care hospitalization and has been admitted to swing bed status for further physical therapy and Occupational Therapy. When I saw the patient today he is awake alert and oriented although he does get quite confused over details of his situation. He is working with physical therapy and Occupational Therapy and doing well. History - Past Medical History Cardiovascular: reports: Hypertension, Other Respiratory: reports: None Neuro: reports: Dementia Endocrine/Autoimmune: reports: None GI: reports: None : reports: Other HEENT: reports: Glaucoma Psych: reports: None Musculoskeletal: reports: Osteoarthritis, Gout Derm: reports: None MRSA Hx?: No - Past Surgical History General: reports: Colonoscopy - POLST Patient has POLST: No Meds/Allgy - Home Medications Home Medications: Ambulatory Orders Medication Instructions Recorded Confirmed allopurinoL [Zyloprim] 100 mg ORAL DAILY 04/24/14 12/14/23 Metoprolol Succinate [Toprol Xl] 25 mg PO DAILY 04/11/21 12/14/23 traMADol [Ultram] 50 mg PO BID 12/09/23 12/14/23 Benazepril HCl [Lotensin] 20 mg PO DAILY 12/10/23 12/14/23 Calcitonin,[place],Synthetic 1 spray ELKE DAILY 12/10/23 12/14/23 [Calcitonin-[place]] Dorzolamide/Timolol Ophth Soln 1 drops TOP BID 12/10/23 12/14/23 [Cosopt] amLODIPine [Norvasc] 5 mg PO DAILY 12/10/23 12/14/23 hydroCHLOROthiazide [Hydrodiuril] 12.5 mg PO DAILY 12/10/23 12/14/23 - Allergies Allergies/Adverse Reactions: Allergies Allergy/AdvReac Type Severity Reaction Status Date / Time No Known Drug Allergies Allergy Verified 11/21/22 17:39 Review of Systems - Constitutional Constitutional: reports: Weakness - Eyes Eyes: denies: Pain, Irritation - Ears, Nose & Throat Ears, Nose & Throat: denies: Ear pain, Hearing loss - Cardiovascular Cariovascular: denies: Palpitations, Chest pain, Edema - Respiratory Respiratory: reports: Cough - Gastrointestinal Gastrointestinal: denies: Abdominal pain, Constipation, Diarrhea - Genitourinary Genitourinary: denies: Dysuria, Frequency, Urgency, Hematuria - Musculoskeletal Musculoskeletal: reports: Back pain, Muscle aches, Joint pain (Knee pain) - Integumentary Integumentary: denies: Rash, Lesions - Neurological Neurological: reports: General weakness. denies: Focal weakness, Dizziness - Psychiatric Psychiatric: denies: Depression, Anxiety - Hematologic/Lymphatic Hematologic/Lymphatic: denies: Bruising, Petechiae Prior Level of Functionality: The patient previously was ambulatory with no assistive devices. He was living alone but apparently not doing well and having difficulty living alone Exam - Vital Signs Vital Signs: Vital Signs x48h Temp Pulse Pulse Resp BP Pulse Ox 12/14/23 10:32 62 14 12/14/23 08:54 36.6 C 73 18 159/97 H 94 - Physical Exam General Appearance: positive: No acute distress, Alert Eyes Bilateral: positive: Normal inspection ENT: positive: ENT inspection nml Neck: positive: Nml inspection Respiratory: positive: Rhonchi (Scattered coarse rhonchi noted throughout all lung montoya bilaterally) Cardiovascular: positive: Regular rate & rhythm. negative: No murmur, No gallop, Friction rub Peripheral Pulses: positive: 2+ Abdomen: positive: Non-tender, Nml bowel sounds. negative: No organomegaly, No distention, Tenderness Skin: positive: Color nml, No rash, Warm, Dry Extremities: positive: Non-tender, Full ROM, Nml appearance Neurologic/Psychiatric: positive: Oriented x3, CN's nml (2-12) Sepsis Event Note (H) - Evaluation Current Stage of Sepsis: Ruled out Conclusion/Plan - Problem List (1) Ambulatory dysfunction Conclusion/Plan: Thank the patient will be receiving physical therapy and Occupational Therapy during this hospitalization. Plans to transition to subacute rehabilitation after the swing shift admission is over with. Ultimately going to [facility] after he completes all of his rehabilitation. (2) Bronchitis due to COVID-19 virus Conclusion/Plan: The patient will continue p.o. doxycycline. He received 3 days of IV ceftriaxone and Zithromax. This is day #1 of doxycycline. He will complete a 7-day course of therapy. (3) Hypertension Conclusion/Plan: Continue amlodipine 5 mg daily lisinopril 20 mg daily Qualifiers: Hypertension type: primary hypertension Qualified Code(s): I10 - Essential (primary) hypertension (4) Osteoarthritis Conclusion/Plan: Quiescent. He has as needed medications available (5) Anemia Conclusion/Plan: Stable. This is likely an anemia of chronic disease. Will check weekly labs on the patient. (6) Compression fracture of L1 lumbar vertebra Conclusion/Plan: Quiescent. He has as needed pain meds available. This is likely a pathologic fracture due to a ground-level fall. (7) Dementia Conclusion/Plan: The patient is showing signs of early cognitive deficits. While he is alert and oriented he does get confused very easily and has had some issues with sundowning at night. Family plans to move the patient to [place] and currently looking for facilities. (8) Glaucoma Conclusion/Plan: Continue eyedrops - Lab Results Lab results reviewed: Yes - Diagnostic Imaging Results Diagnostic Imaging Results: positive: Other (No labs or imaging studies have been ordered during this swing bed admission. I have reviewed his studies from his previous hospitalization)
[2023-12-14] MEDS: CHOLECALCIFEROL 25 MCG TABLET PO SCH (16:53)
[2023-12-14] MEDS: guaiFENesin/CODEINE 5 ML UDC PO PRN (17:46)
[2023-12-16] MEDS ORDERED: polyethylene glycoL 3350 17 GM PACKET PO SCH (12:00)
[2023-12-17] MEDS ORDERED: hydrALAZINE 25 MG TABLET PO PRN (09:02)
--- NOTE | 2023-12-17 14:48 | PROVIDER PROGRESS NOTE ---
Subjective - Prog Note Date Prog Note Date: 12/17/23 Prog Note Time: 14:50 - Subjective Pt reports feeling: Improved Current Medications - Current Medications Current Medications: Allopurinol 100 mg p.o. daily Metoprolol succinate 25 mg p.o. nightly Tramadol 50 mg p.o. twice daily Lisinopril 20 mg daily Calcitonin, [place] 1 spray each nostril daily Dorzolamide/timolol ophthalmic solution 1 drop each eye twice daily Amlodipine 5 mg daily Hydralazine 25 mg p.o. every 8 hours as needed for SBP > 180, DBP > 102 Objective - Vital Signs/Intake & Output Reviewed Vital Signs: Yes Vital Signs: Vital Signs x48h Temp Pulse Pulse Resp BP Pulse Ox 12/17/23 08:24 36.7 C 82 18 102/58 L 94 12/17/23 07:28 78 18 Intake & Output: Intake & Output 12/14/23 12/15/23 12/16/23 12/17/23 23:59 23:59 23:59 23:59 Intake Total 2140 1490 1490 780 Output Total 275 Balance 2140 1490 1215 780 - Objective General Appearance: positive: No acute distress Eyes Bilateral: positive: Normal inspection ENT: positive: ENT inspection nml Neck: positive: Nml inspection Respiratory: positive: No respiratory distress, Other (He has some scattered coarse rhonchi bilaterally) Cardiovascular: positive: Regular rate & rhythm, No murmur, No gallop. negative: Friction rub Skin: positive: Color nml, No rash, Warm, Dry Extremities: positive: Non-tender, Full ROM Sepsis Event Note (H) - Evaluation Current Stage of Sepsis: Ruled out Assessment/Plan - Problem List (1) Ambulatory dysfunction Impression: The patient continues to work with physical therapy and is quite cooperative. His progress has been limited due to the development of orthostatic hypotension. He had a significant drop in his blood pressure today when standing. See discussion below (2) Orthostatic hypotension Impression: The patient was found to be significantly orthostatic. His blood pressures were very high overnight. I have added some as needed p.o. medication for his high blood pressures. I have moved his metoprolol succinate to the evening. We may need to make further adjustments. The patient on exam does not appear to be dry. Overall looking much better. He may have some residual autonomic dysfunction from his recent COVID infection. At this point we will check orthostatic vital signs daily. Patient is encouraged when he stands up to stop and get his bearings before he tries to ambulate. He can continue to work with physical therapy and Occupational Therapy. (3) Bronchitis due to COVID-19 virus Impression: He has completed a course of p.o. doxycycline. He received IV antibiotics during this hospitalization (4) Hypertension Qualifiers: Hypertension type: primary hypertension Qualified Code(s): I10 - Essential (primary) hypertension (5) Osteoarthritis Impression: Quiescent (6) Anemia Impression: Will order labs later on this week. (7) Compression fracture of L1 lumbar vertebra Impression: No complaints of pain at this point. This is likely a pathologic compression fracture due to a ground-level fall (8) Dementia Impression: The patient appears to have some mild cognitive deficits. Family is arranging for him to move to [place] and to go to rehab in a facility when he leaves the hospital. (9) Glaucoma Impression: Continue eyedrops Overall the patient will remain in swing bed status. I saw him today due to significantly high blood pressures overnight and then rather significant orthostatic hypotension today. I have adjusted his blood pressure medications we will keep a close eye on this as we go along. Time spent: 35 minutes I have discussed this with Dr. Mike arthur with this plan nd she is in agreement
[2023-12-17] MEDS: METOPROLOL SUCCINATE 25 MG TABLET PO SCH (20:06)
[2023-12-17] MEDS ORDERED: METOPROLOL SUCCINATE 25 MG TABLET PO SCH (21:00)
[2023-12-18] MEDS: amLODIPine 5 MG TABLET PO SCH (08:10)
[2023-12-18] MEDS ORDERED: amLODIPine 5 MG TABLET PO SCH (09:00)
[2023-12-19 07:53] VITALS: O2SAT 97
[2023-12-19 08:13] VITALS: BP 120/69
[2023-12-19 08:18] LABS: EOSINOPHILS % (AUTO) 0.1 %; HCT - HEMATOCRIT 37.2 % (42.0-52.0); HGB - HEMOGLOBIN 12.5 g/dL (14.0-18.0); LYMPHOCYTES # (AUTO) 1.1 10^3/uL (1.5-3.5); LYMPHOCYTES % (AUTO) 15.9 %; MEAN CORPUSCULAR HGB CONC 33.6 g/dL (32.0-36.0); MEAN CORPUSCULAR VOLUME 92.3 fL (80.0-94.0); MEAN PLATELET VOLUME 9.1 fL (7.4-11.4); MONOCYTES # (AUTO) 0.5 10^3/uL (0.0-1.0); MONOCYTES % (AUTO) 6.9 %; NEUTROPHILS # (AUTO) 5.3 10^3/uL (1.5-6.6); NEUTROPHILS % (AUTO) 76.4 %; PLT - PLATELET COUNT 292 10^3/uL (130-450); RED BLOOD COUNT 4.03 10^6/uL (4.70-6.10); RED CELL DISTRIBUTION WIDTH 14.6 % (12.0-15.0)
--- NOTE | 2023-12-19 08:29 | Discharge Plan ---
"Discharge Plan for SNF / [facility] - Discharge Plan And Transition Orders Problem Reviewed?: Yes Disposition: [facility] DC/Xfer Condition: Fair Allergies and Adverse Reactions: Allergies Allergy/AdvReac Type Severity Reaction Status Date / Time No Known Drug Allergies Allergy Verified 11/21/22 17:39 Health Concerns: You were initially admitted to the hospital with COVID-19. He you had bronchitis and were having low oxygen levels. You were treated in the hospital with IV antibiotics and slowly improved. However you were quite weak and we transitioned you to swing bed status for further physical therapy and Occupational Therapy. You have had some issues with your blood pressure dropping when you stand up. You need to be quite careful to stand up and let yourself get balanced before you try to ambulate. You are having some blood pressure fluctuations that is likely due to to your recent COVID infection and hopefully will improve with time. You are being discharged to an assisted nirav ing facility today at [facility]. You should follow-up with your primary care physician in 1 to 2 weeks. Plan of Treatment: Transition to an assisted living facility today. Assessment: On the day of discharge the patients heart is regular, lungs are improved but still with some scattered rhonchi. He is hemodynamically stable for discharge - SNF / [facility] Transition Orders Admit to (Facility): [facility] Discharge Diagnosis: 1. Ambulatory dysfunction 2. Recent COVID 19 infection with bronchitis 3. Orthostatic hypotension 4. Hypertension 5. Osteoarthritis 6. Gout 7. Glaucoma 8. Anemia Medicare Certification Statement: I certify that [facility] care is medically necessary on a continuing basis for any of the conditions for which she/he is receiving care during hospitalization. Notify PCP of admission and forward orders to primary provider for signature. Weight on admission and: Weekly Call PCP immediately if weight increases by: 2 kg Other Notification Orders: Call PCP immediately if patient develops dyspnea, chest pain/tightness or edema. House Bowel Program: Yes Additional Bowel Program Orders: If no BM after 2 days, nurse may give M.O.M. 30ml PO PRN and/or ducolax Supp 1 [place] and/or MELCHOR 250mg P.O., and/or senna 1-2 tabs PO. On day 3 nurse may give repeat above order until residents constipation is resolved. Annual Influenza Vaccine (between Mar 23 and October 20): Yes Two-step PPD per [facility] [id number] or approved exception documents: Yes Medication Orders: PLEASE REFER TO THE DISCHARGE MEDICATION LIST. Insulin Orders?: No - Medications New Prescriptions: hydrALAZINE [Apresoline] 25 mg PO QID PRN #60 tab PRN Reason: Hypertensive Emergency predniSONE [Deltasone] See Rx Instructions .ROUTE .COMPLEX #21 tab - Diet Type: Geriatric Texture: Regular May have monthly special meal: Yes - Therapies | Activity Therapy: Evaluation | Treat if indicated: PT, OT Rehabilitation Potential: Maximize functional status Activity: Activity as Tolerated Weight Bearing: Full Weight Assistance Devices: Cane Follow Up: Primary care provider in 1 week"
[2023-12-19 08:33] LABS: CALCIUM 9.6 mg/dL (8.5-10.3); CREATININE 1.1 mg/dL (0.6-1.3)
--- NOTE | 2023-12-19 08:48 | DISCHARGE SUMMARY ---
Discharge Summary Admit Date: 12/14/23 Discharge Date: 12/19/23 Discharging Provider: Maine Dias PA-C Primary Care Provider: Kvng Molina Code Status: Attempt Resuscitation Condition at Discharge: Fair Discharge Disposition: [facility] DC/Xfer Discharge [facility] Name: [facility] - DIAGNOSES Admission Diagnoses: 1. Ambulatory dysfunction The patient was recently admitted to the hospital with acute hypoxic respiratory failure due to COVID-19 infection and superimposed bronchitis. He has since been taken off of precautions and was quite weak and debilitated after that acute illness. He was admitted to swing bed status. He has done quite well working with physical therapy and Occupational Therapy. Today he will transition to an assisted living facility. 2. Recent COVID 19 infection with bronchitis The patient has completed a course of antibiotic therapy. He will complete a steroid taper at his assisted living facility 3. Orthostatic hypotension The patient has had some issues with orthostatic hypotension. It seems to be improved a bit. This may be due to his recent COVID infection and mild autonomic dysfunction 4. Hypertension He will recently amlodipine 5 mg daily, benazepril 20 mg daily and hydrochlorothiazide 12.5 mg daily 5. Osteoarthritis Quiescent 6. Gout Continue his home dose of allopurinol 7. Glaucoma Continue home dose of eyedrops 8. Anemia Stable 9. Mild dementia When the patient was admitted to the hospital for his COVID-19 infection he was found to be quite disheveled and his house was in complete disarray. It was felt that he had some mild cognitive deficits and was not safe to go home. His family has arranged assisted living placement for the patient and at some point may move him to [facility] where they reside. - HPI History of Present Illness: The patient is an 83-year-old -[place] male with who previously lived by himself. He was recently hospitalized from 12/10/2023 until 12/13/2023 for acute respiratory failure due to COVID-19 infection. He was treated for acute bronchitis. During the course of his hospitalization he was successfully weaned off of oxygen and has been doing well. Nursing staff talking to friends and neighbors found out that he initially makes started getting sick with his COVID infection on December 03, 2023. He was found down outside at his home. He was quite disheveled and apparently his house was extremely filthy and did not shambles. His family lives in [place] and is very supportive and been trying to get him to move to [place] for quite some time but he has been resistant. It became quite obvious upon admission that the patient has some mild cognitive deficits and likely has some underlying early dementia. APS was contacted and at this point is not felt that the patient is safe to go home. His family flew in from [place] and long discussions were had. They have made arrangements in a few days for him to go to subacute rehabilitation on the [place]. After that they plan to move him to [place]. The patient is agreeable to this plan. The patient has been discharged from acute care hospitalization and has been admitted to swing bed status for further physical therapy and Occupational Therapy. When I saw the patient today he is awake alert and orien ninfa although he does get quite confused over details of his situation. He is working with physical therapy and Occupational Therapy and doing well. - HOSPITAL COURSE Hospital Course: The patient was admitted to swing bed status. He has been working with physical therapy and Occupational Therapy and doing quite well. His only issue during this hospitalization was some issues with orthostatic hypotension. This seems to wax and wane. The patient is not dehydrated. He is encouraged to stand up and balance himself for a few moments before trying to ambulate. Otherwise he has done well. His cough is improving. He has been taken off of COVID precau tions and is doing well. He will complete a steroid taper in the outpatient setting. Today he is being discharged to a new assisted living facility. He is doing well and is stable on the day of discharge. - ALLERGIES Allergies/Adverse Reactions: Allergies Allergy/AdvReac Type Severity Reaction Status Date / Time No Known Drug Allergies Allergy Verified 11/21/22 17:39 - MEDICATIONS Home Medications: Ambulatory Orders Medication Instructions Recorded Confirmed allopurinoL [Zyloprim] 100 mg ORAL DAILY 04/24/14 12/14/23 Metoprolol Succinate [Toprol Xl] 25 mg PO DAILY 04/11/21 12/14/23 traMADol [Ultram] 50 mg PO BID 12/09/23 12/14/23 Benazepril HCl [Lotensin] 20 mg PO DAILY 12/10/23 12/14/23 Calcitonin,Tonica,Synthetic 1 spray ELKE DAILY 12/10/23 12/14/23 [Calcitonin-Tonica] Dorzolamide/Timolol Ophth Soln 1 drops TOP BID 12/10/23 12/14/23 [Cosopt] amLODIPine [Norvasc] 5 mg PO DAILY 12/10/23 12/14/23 hydroCHLOROthiazide [Hydrodiuril] 12.5 mg PO DAILY 12/10/23 12/14/23 Calcitonin [Fortical] 1 sprays ELKE DAILY each 12/19/23 Cholecalciferol [Vitamin D3] 50 mcg PO DAILY tab 12/19/23 Dorzolamide/Timolol Ophth Soln 1 drops EACHEYE BID each 12/19/23 [Cosopt] Metoprolol Succinate [Toprol Xl] 25 mg PO QPM tab 12/19/23 allopurinoL [Zyloprim] 100 mg PO DAILY tab 12/19/23 amLODIPine [Norvasc] 5 mg PO DAILY tab 12/19/23 guaiFENesin [Mucinex] 600 mg PO BID tab 12/19/23 hydrALAZINE [Apresoline] 25 mg PO QID PRN #60 tab 12/19/23 predniSONE [Deltasone] See Rx Instructions .ROUTE 12/19/23 .COMPLEX #21 tab - PHYSICAL EXAM AT DISCHARGE General Appearance: positive: No acute distress, Alert Eyes Bilateral: positive: Normal inspection ENT: positive: ENT inspection nml Neck: positive: Nml inspection Respiratory: positive: Chest non-tender, Other (Scattered rhonchi bilaterally) Cardiovascular: positive: Regular rate & rhythm, No murmur, No gallop. negative: Friction rub Abdomen: positive: Non-tender, No organomegaly, Nml bowel sounds Skin: positive: Color nml, No rash, Warm, Dry Extremities: positive: Non-tender, Full ROM Neurologic/Psychiatric: positive: Oriented x3, CN's nml (2-12) - LABS Result Diagrams: 12/19/23 08:12 12/19/23 08:12 - SEPSIS Current Stage of Sepsis: Ruled out - QUALITY (Female Hip Fx Only) Was patient sent home on osteoporosis medication?: No - FOLLOW UP Follow Up: The patient will follow-up with his primary care physician in 1 to 2 weeks - TIME SPENT Time Spent in Discharge (Minutes): 45 (The patient was discussed with Dr Lott who is in agreement with this discharge plan)
== END 2023-12-19 12:43 | DRG 948 ==
LOC: MS2 16:44
PROVIDERS: ADMIT Physician Assistant; ATTEND Physician Assistant
DX: R53.1 Weakness (principal); M48.56XA Collapsed vertebra, not elsewhere classified, lumbar region, initial encounter for fracture; I10 Essential (primary) hypertension; Z86.16 Personal history of COVID-19; M19.90 Unspecified osteoarthritis, unspecified site; M10.9 Gout, unspecified; H40.9 Unspecified glaucoma; D64.9 Anemia, unspecified; F03.A0 Unspecified dementia, mild, without behavioral disturbance, psychotic disturbance, mood disturbance, and anxiety; J40 Bronchitis, not specified as acute or chronic; I95.1 Orthostatic hypotension
CPT/HCPCS: 36415; 80048; 85025; 94640

== ENCOUNTER 2024-02-05 11:07 | Outpatient (CLI) | payer MEDICARE, OTHER ==
[2024-02-05 11:25] LABS: BASOPHILS % (AUTO) 0.5 %; EOSINOPHILS # (AUTO) 0.1 10^3/uL (0.0-0.7); EOSINOPHILS % (AUTO) 1.3 %; HCT - HEMATOCRIT 38.9 % (42.0-52.0); HGB - HEMOGLOBIN 12.6 g/dL (14.0-18.0); LYMPHOCYTES # (AUTO) 1.7 10^3/uL (1.5-3.5); LYMPHOCYTES % (AUTO) 43.5 %; MEAN CORPUSCULAR HEMOGLOBIN 30.9 pg (27.0-31.0); MEAN CORPUSCULAR HGB CONC 32.4 g/dL (32.0-36.0); MEAN CORPUSCULAR VOLUME 95.3 fL (80.0-94.0); MEAN PLATELET VOLUME 9.5 fL (7.4-11.4); MONOCYTES # (AUTO) 0.4 10^3/uL (0.0-1.0); MONOCYTES % (AUTO) 9.5 %; NEUTROPHILS # (AUTO) 1.8 10^3/uL (1.5-6.6); NEUTROPHILS % (AUTO) 44.9 %; PLT - PLATELET COUNT 169 10^3/uL (130-450); RED BLOOD COUNT 4.08 10^6/uL (4.70-6.10); RED CELL DISTRIBUTION WIDTH 14.9 % (12.0-15.0)
[2024-02-05 11:48] LABS: ALBUMIN 4.4 g/dL (3.2-5.5); ALBUMIN/GLOBULIN RATIO 1.5 (1.0-2.2); ALKALINE PHOSPHATASE 55 IU/L (42-121); ALT ALANINE AMINOTRANSFERASE 9 IU/L (10-60); AST ASPARTATE AMINOTRANSFERASE 16 IU/L (10-42); BILIRUBIN,TOTAL 0.5 mg/dL (0.2-1.0); BUN - BLOOD UREA NITROGEN 17 mg/dL (6-20); CARBON DIOXIDE - CO2 30 mmol/L (21-32); CHLORIDE 103 mmol/L (101-111); CHOL/HDL RATIO 6.1 (<5.0); CHOLESTEROL 194 mg/dL; CREATININE 1.1 mg/dL (0.6-1.3); GFR - MDRD 78 (>89); GLUCOSE 101 mg/dL (74-104); HDL CHOLESTEROL 32 mg/dL; LDL CHOLESTEROL,CALCULATED 135 mg/dL; LDL/HDL RATIO 4.2 (<3.6); POTASSIUM 4.2 mmol/L (3.5-4.5); SODIUM 137 mmol/L (135-145); TOTAL PROTEIN 7.4 g/dL (6.4-8.9); TRIGLYCERIDES 136 mg/dL; VLDL CHOLESTEROL 27 mg/dL
[2024-02-05 11:53] LABS: THYROID STIMULATING HORMONE 1.55 uIU/mL (0.34-5.60)
[2024-02-05 13:56] LABS: ESTIMATED AVERAGE GLUCOSE 123 mg/dL (70-100); HEMOGLOBIN A1c% 5.9 % (4.27-6.07)
== END 2024-02-05 11:08 | disposition home or self-care (01) ==
LOC: LAB 11:07
PROVIDERS: ATTEND Family Medicine
DX: I10 Essential (primary) hypertension (principal); R63.4 Abnormal weight loss; M21.371 Foot drop, right foot; M48.56XS Collapsed vertebra, not elsewhere classified, lumbar region, sequela of fracture; H40.9 Unspecified glaucoma; R73.03 Prediabetes; Z12.5 Encounter for screening for malignant neoplasm of prostate
CPT/HCPCS: 36415; 80053; 80061; 83036; 84443; 85025; G0103; 83721; 84153